=== PATIENT | male | born 1930 | race Caucasian/White ===

== ENCOUNTER 2018-08-09 16:25 | Inpatient (IN) ==
[2018-08-10] MEDS ORDERED: Acetaminophen 325 MG Tablet PO PRN (00:09)
--- NOTE | 2018-08-10 01:18 | P.HPIM ---
History of Present Illness Service: [facility] Primary Care Physician: UNKNOWN Chief Complaint: Chest pain History of Present Illness: 87-year-old male with a history of hypertension, AAA , CAD, hyperlipidemia, hypothyroidism, BPH and CKD stage III was a transfer from [facility] in [place] for evaluation by cardiothoracic surgery. He states for the last 3 days he has been having intermittent chest pain and today it became more prominent and was not relieved by nitro. He states the pain was a sharp stabbing constant 7/10 in the center of his chest with no radiation or associated symptoms. He states he presented to the ER and they took him straight for a cardiac cath in which they told him he was to block to be able to be stented. Patient is the stepfather to Dr. Mcintyre. And he states he consulted with her and it was decided that he wanted to be evaluated by Dr. Jang. Upon evaluation he is laying in bed, denies any chest pain or shortness of breath. While at [facility] he was diagnosed with pneumonia, but he does deny any cough, fevers or chills. Inpatient Certification Inpatient Certification: I certify that the inpatient services were ordered in accordance with Medicare regulations governing the order. This includes certification that hospital inpatient services are reasonable and necessary and in the case of services not specified as inpatient-only under 42 CFR 419.22(n), that they are appropriately provided as inpatient services in accordance to with the 2-midnight benchmark under 43 CFR 412.3(e) Estimated Total Length of Stay (Days): 2 Plans for Post Hospital Care: Home Review of Systems Review of Systems: all other systems reviewed are negative [facility] History History Provided By: Patient Medical History Medical History AAA (abdominal aortic aneurysm) (Acute) BPH (benign prostatic hyperplasia) (Acute) CKD (chronic kidney disease) (Acute) Coronary artery disease (Acute) HLD (hyperlipidemia) (Acute) HTN (hypertension) (Acute) Heart disease (Acute) Hypothyroidism (Acute) Prostate cancer (Acute) Sleep apnea (Acute) Surgical History Surgical History H/O heart artery stent (Acute) History of appendectomy (Acute) History of cholecystectomy (Acute) History of tonsillectomy (Acute) Family History Family History Other Heart disease Social History Social History Substance History: No History of Abuse Second Hand Smoke Exposure: No Smoking Status: Never smoker How Often Do You Have a Drink Containing Alcohol: Never Medications and Allergies Allergies Allergy/AdvReac Type Severity Reaction Status Date / Time ciprofloxacin [From Cipro] Allergy unknown Verified 08/10/18 01:34 diphenhydramine Allergy unknown Verified 08/10/18 01:34 [From Benadryl] Penicillins Allergy unknown Verified 08/10/18 01:34 sulfamethoxazole Allergy unknown Verified 08/10/18 01:34 [From Bactrim] terazosin [From Hytrin] Allergy unknown Verified 08/10/18 01:34 trazodone Allergy unknown Verified 08/10/18 01:34 trimethoprim [From Bactrim] Allergy unknown Verified 08/10/18 01:34 bee stings Allergy unknown Uncoded 08/10/18 01:34 Home Medications Medication Instructions Recorded Confirmed Type azithromycin 500 mg IV Q24H 08/10/18 08/10/18 History ceftriaxone 1 g IV DAILY 08/10/18 08/10/18 History docusate sodium 100 mg PO BID 08/10/18 08/10/18 History famotidine 20 mg PO DAILY 08/10/18 08/10/18 History morphine 2 mg IV Q4HR PRN 08/10/18 08/10/18 History oxycodone-acetaminophen 1 tab PO Q4-6H PRN 08/10/18 08/10/18 History sennosides-docusate sodium [Senna 2 tab PO HS PRN 08/10/18 08/10/18 History with Docusate Sodium] Active Medications: Active Medications Acetaminophen (Tylenol) 650 mg PO Q4H PRN PRN Reason: Temp > 100.4 Ondansetron HCl (Zofran Inj) 4 mg IV.PUSH Q6H PRN PRN Reason: NAUSEA OR VOMITING Sodium Chloride (Ns Flush) 2 ml IV.FLUSH BID SALMA Sodium Chloride (Ns Flush) 2 ml IV.FLUSH PRN PRN PRN Reason: FLUSH AFTER USING IV ACCESS Physical Exam Vital signs: Vital Signs 08/10/18 00:27 Temperature 97.8 F Pulse Rate 77 Respiratory Rate 18 Blood Pressure 136/69 Intake & Output 02/17/19 02/17/19 02/18/19 06:59 18:59 06:59 Weight 69.5 kg Other: Weight On Admission 69.5 kg Narrative: GENERAL: Well-nourished patient in no distress SKIN: Warm and dry. No open lesions or abrasions EYES: No scleral icterus. No injection or drainage. NECK: Supple, trachea midline. No JVD or lymphadenopathy. CARDIOVASCULAR: Regular rate and rhythm without murmurs, gallops, or rubs. RESPIRATORY: Breath sounds equal bilaterally. No accessory muscle use. GASTROINTESTINAL: Abdomen soft, non-tender, nondistended. Bowel sounds x4 MUSCULOSKELETAL: No cyanosis, or edema. No muscle weakness Caprini VTE Risk Assessment Caprini VTE Risk Assessment: Moderate/High Risk (score >= 2) Caprini Risk Assessment Model: Point Value = 1 Point Value = 2 Point Value = 3 Point Value = 5 Age 41-60 Minor surgery BMI > 25 kg/m2 Swollen legs Varicose veins or History of unexplained or recurrent spontaneous Oral contraceptives or hormone replacement Sepsis (< 1 month) Serious lung disease, including pneumonia (< 1 month) Abnormal pulmonary function Acute myocardial infarction Congestive heart failure (< 1 month) History of inflammatory bowel disease Medical patient at bed rest Age 61-74 Arthroscopic surgery Major open surgery (> 45 min) Laparoscopic surgery (> 45 min) Malignancy Confined to bed (> 72 hours) Immobilizing plaster cast Central venous access Age >= 75 History of VTE Family history of VTE Factor V Leiden Prothrombin [id number] Lupus anticoagulant Anticardiolipin antibodies Elevated serum homocysteine Heparin-induced thrombocytopenia Other congenital or acquired thrombophilia Stroke (< 1 month) Elective arthroplasty Hip, pelvis, or leg fracture Acute spinal cord injury (< 1 month) Prophylaxis Regimen: Total Risk Factor Score Risk Level Prophylaxis Regimen 0-1 Low Early ambulation 2 Moderate Order ONE of the following: *Sequential Compression Device (SCD) *Heparin 5000 units SQ BID 3-4 Higher Order ONE of the following medications: *Heparin 5000 units SQ TID *Enoxaparin/Lovenox 40 mg SQ daily (WT < 150 kg, CrCl > 30 mL/min) *Enoxaparin/Lovenox 30 mg SQ daily (WT < 150 kg, CrCl > 10-29 mL/min) *Enoxaparin/Lovenox 30 mg SQ BID (WT < 150 kg, CrCl > 30 mL/min) AND/OR *Sequential Compression Device (SCD) 5 or more Highest Order ONE of the following medications: *Heparin 5000 units SQ TID (Preferred with Epidurals) *Enoxaparin/Lovenox 40 mg SQ daily (WT < 150 kg, CrCl > 30 mL/min) *Enoxaparin/Lovenox 30 mg SQ daily (WT < 150 kg, CrCl > 10-29 mL/min) *Enoxaparin/Lovenox 30 mg SQ BID (WT < 150 kg, CrCl > 30 mL/min) AND *Sequential Compression Device (SCD) Assessment and Plan Plan 87-year-old male with a history of hypertension, AAA, CAD, hyperlipidemia, hypothyroidism, BPH and CKD stage III was a transfer from [facility] in [place] for evaluation by cardiothoracic surgery. Angina, with occluded stents, possible in need of open heart EKG shows normal sinus rhythm with a left bundle branch block -Cardiothoracic surgery consulted; Appreciate assistance -Nitro sublingual for chest pain -Morphine as needed IV -Reordered home aspirin and Brilinta -Cardiac diet for now until evaluated by surgery Pneumonia Chest x-ray reviewed from prior hospital shows interstitial infiltrates in the right upper and right lower as well as left mid and lower lung -Continue azithromycin IV and ceftriaxone IV -Trend CBC Hypertension, chronic -Resume home medications doxazosin and carvedilol, monitor vitals Hypothyroidism, chronic -Resume home medications Hyperlipidemia, chronic -Resume home medications atorvastatin DVT prophylaxis: SCDs
[2018-08-10] MEDS ORDERED: diazePAM 2 MG Tablet PO PRN (01:35)
[2018-08-10] MEDS ORDERED: AZITHROMYCIN 500 MG IV.SIG SCH (09:00)
[2018-08-10] MEDS ORDERED: CEFTRIAXONE 1 GM IV.SIG SCH (09:00)
[2018-08-10] MEDS: Azithromycin Inj 500 MG in Sodium Chlor 0.9% Inj 250 ML IV.SIG SCH (09:14)
[2018-08-10] MEDS: Docusate Sodium 100 MG Capsule PO SCH ×2 (09:15→21:11)
[2018-08-10] MEDS: Furosemide 20 MG Tablet PO SCH (09:17)
[2018-08-10] MEDS: Doxazosin 1 MG Tablet PO SCH (09:17)
[2018-08-10] MEDS: Levothyroxine 50 MCG Tablet PO SCH (09:18)
[2018-08-10] MEDS: Famotidine 20 MG Tablet PO SCH (09:18)
[2018-08-10] MEDS ORDERED: Insulin Regular (For Infusion) 100 UNIT in Sodium Chlor 0.9% Inj 99 ML IV.CONT PRN (12:22)
[2018-08-10] MEDS ORDERED: Dextrose 50% in Water 50 ML Vial IV.PUSH PRN (12:22)
[2018-08-10] MEDS ORDERED: Sodium Chloride 0.9% Irr Bot 1,000 ML, Vancomycin Inj 1,000 MG IRRIGATION SCH ×2 (12:30)
[2018-08-10] MEDS ORDERED: Sodium Chlor 0.9% Inj 77.5 ML, Papaverine Inj 60 MG, Nitroglycerin Inj 100 MCG, dilTIAZ... IRRIGATION SCH ×3 (12:30)
[2018-08-10] MEDS ORDERED: Chlorhexidine 4% Topical 120 APPLIC/120 ML Bottle TOPICAL SCH (12:30)
[2018-08-10] MEDS ORDERED: Vancomycin Inj 1,000 MG in Sodium Chlor 0.9% Inj 250 ML IV.SIG SCH (13:00)
--- NOTE | 2018-08-10 13:40 | MB ---
cc: Damaris Salinas APRN DATE: 08/10/2018 HISTORY OF PRESENT ILLNESS: An 87-year-old male, patient of Dr. Iraj Fung and Damion Humphrey, who apparently was transferred from [facility]; history of coronary artery disease, who has was actually seen by Dr. Jang in the office on 07/06/2018. He has had a history of coronary disease. He has had prior stenting of the RCA. He has been complaining of symptoms of chest pain and shortness of breath. He had recent re-instent stenosis of the RCA stent for which he underwent PCI and balloon angioplasty. He presented to [facility] with chest pain. He had a catheterization that was done on Friday; however, I do not have that catheterization report, which is pending and also the films. He did have a heart catheterization. His last report was from 05/04/2018 which showed the left main was a medium size without significant disease. LAD had no obstructive disease; the circumflex had no obstructive disease. The RCA had a 90+ percent in-stent restenosis where PCI was completed. He has also had an echocardiogram from 05/07/2018 showing an ejection fraction of 50%-55%, trace mitral and tricuspid insufficiency. PAST MEDICAL HISTORY: Other past medical history includes hypertension, coronary artery disease. PAST SURGICAL HISTORY: Includes abdominal aortic aneurysm repair, appendectomy, cardiac catheterization, cholecystectomy, tonsillectomy. ALLERGIES: INCLUDE BACTRIM, BENADRYL, CIPROFLOXACIN, HYTRIN, PENICILLIN. HOME MEDICATIONS: Include: 1. Percocet p.r.n. 2. Zithromax. 3. Ceftriaxone. 4. Docusate. 5. Felodipine. 6. Morphine. 7. The patient was also on Brilinta at home, his last dose was yesterday. He has been on Brilinta since April. 8. He was also recently started on Rocephin and Zithromax for upper respiratory infection. FAMILY HISTORY: Heart disease. SOCIAL HISTORY: Nonsmoking. He did smoke for 20 years, quit 30 years ago. Drinks 2 beers in the evening; quit driving. He is on his third marriage. Lives with his , has 5 children of his own. REVIEW OF SYSTEMS: GENERAL: No night sweats, fever, heat and cold intolerance. SKIN: No psoriasis, itching or hives. HEENT: No blurred vision, hearing loss. RESPIRATORY: Positive for recent chest pain, some shortness of breath. GASTROINTESTINAL: No diarrhea or vomiting. GENITOURINARY: No burning, frequency, urgency. CENTRAL NERVOUS SYSTEM: No history of TIA, CVA or seizure disorder. ENDOCRINOLOGY: No history of diabetes. PHYSICAL EXAMINATION: VITAL SIGNS: Blood pressure 116/60, heart rate of 70, O2 saturation 99 on 2 liters, afebrile. GENERAL: Patient is awake, alert, in no acute distress. HEENT: Head is normocephalic, atraumatic. Pupils equal and reactive. Oral mucosa pink, moist. NECK: Supple. No JVD. CARDIOVASCULAR: Heart sounds S1, S2. Regular rate and rhythm. No audible rubs, murmurs, or gallops. LUNGS: Clear to auscultation. No wheezes, rales or rhonchi. ABDOMEN: Soft, nontender. No masses or organomegaly. EXTREMITIES: No cyanosis, clubbing, or edema. LABORATORY DATA: Lab work was pending. RADIOLOGICAL EXAMS: Are also pending. IMPRESSION AND PLAN: This is a gentleman that has had recent rein in-stent stenosis to the right coronary artery. We are waiting on his catheterization report and films from [place] that will be evaluated by Dr. Elle Vasquez and evaluated for possible surgery. He has seen our partner, Dr. Cheyenne Jang, who will further evaluate for surgery. He needs to be off the Brilinta for greater than 5 days and timing of surgery as per Dr. Elle Vasquez and/or Dr. Jang. JAY Wheeler MD JRT/bandar , 12:21 PM , 12:29 PM
--- NOTE | 2018-08-10 13:53 | XR ---
EXAM DATE: 08/10/2018 1:27 PM EST AGE/SEX: 87 years / Male INDICATIONS: Evaluate for pulmonary disease. CLINICAL DATA: This is the patient's initial encounter. Patient reports that signs and symptoms have been present for 1 day and indicates a pain score of 0/10. MEDICAL/SURGICAL HISTORY: None. None. COMPARISON: [facility], XR CHEST PA AND LAT, 05/27/2018. . FINDINGS: Mild, chronic appearing interstitial opacities and volume loss seen on the right, similar to the prio r study. No acute pneumonic infiltrate demonstrated. No pleural effusion or pneumothorax. Heart size within normal limits. Tortuous thoracic aorta again noted. CONCLUSION: No acute pneumonia demonstrated. Mild, chronic appearing interstitial opacities and volume loss on th e right. Electronically signed by: Elmer Gallego MD Board Certified Radiologist 08/10/2018 1:52 PM EST
[2018-08-10 14:08] LABS: Anion Gap 7 meq/L (5-15); Blood Urea Nitrogen 20 mg/dL (7-18); Calcium 8.6 mg/dL (8.5-10.1); Carbon Dioxide 26.7 meq/L (21.0-32.0); Chloride 107 meq/L (98-107); Glomerular Filtration Rate 47 mL/min (>89); Glucose,Random 104 mg/dL (74-106); Potassium 3.8 meq/L (3.5-5.1); Sodium 141 meq/L (136-145)
[2018-08-10 14:14] LABS: Alanine Aminotransferase 17 U/L (12-78); Alkaline Phosphatase 168 U/L (45-117); Aspartate Aminotransferase 26 U/L (15-37); Total Protein 6.2 g/dL (6.4-8.2)
--- NOTE | 2018-08-10 14:19 | US ---
EXAM DATE: 08/10/2018 2:12 PM EST AGE/SEX: 87 years / Male INDICATIONS: Pre Op cardiac surgery. CLINICAL DATA: This is the patient's initial encounter. Patient reports that signs and symptoms have been present for 1 day and indicates a pain score of 0/10. MEDICAL/SURGICAL HISTORY: Aneurysm, abdominal. Carcinoma, prostatic. Hypothyroidism. BPH. CK D. CAD. Hyperlipidemia. HTN. Sleep apnea. Coronary artery stent. Appendectomy. Cholecystectomy. T onsillectomy. COMPARISON: No prior exams available for comparison. VELOCITY PARAMETERS: ICA/CCA Ratio: Right 1.2 , Left 1.6 ICA: Right 208 cm/sec, Left 188 cm/sec CCA: Right 169 cm/sec, Left 114 cm/sec ECA: Right 136 cm/sec, Left 146 cm/sec Vertebral: Right 52 cm/sec antegrade, Left 80 cm/sec antegrade FINDINGS: Right Carotid: Moderate arteriosclerotic plaque is visualized with 50% or less narrowing at the bulb and proximal internal carotid artery.The waveforms are within normal limits. Left Carotid: Moderate arteriosclerotic plaque is visualized at the bulb and proximal internal carot id artery.. The waveforms are within normal limits. Other: None. CONCLUSION: 1. Right Internal Carotid Artery: Moderate severity atherosclerotic plaque at the bifurcation withou t hemodynamically significant narrowing. 2. Left Internal Carotid Artery: Moderate severity atherosclerotic plaque at the bifurcation without hemodynamically significant narrowing. Electronically signed by: Elmer Gallego MD Board Certified Radiologist 08/10/2018 2:18 PM EST
--- NOTE | 2018-08-10 14:20 | US ---
EXAM DATE: 08/10/2018 2:13 PM EST AGE/SEX: 87 years / Male INDICATIONS: Pre Op cardiac surgery. CLINICAL DATA: This is the patient's initial encounter. Patient reports that signs and symptoms have been present for 1 day and indicates a pain score of 0/10. MEDICAL/SURGICAL HISTORY: Aneurysm, abdominal. Carcinoma, pharyngeal. Hypothyroidism. BPH. C KD. CAD. Hyperlipidemia. HTN. Sleep apnea. Coronary artery stent. Appendectomy. Cholecystectomy. Tonsillectomy. COMPARISON: No prior exams available for comparison. TECHNIQUE: Venous ultrasound of both lower extremities was performed from the inguinal ligament to t he proximal calf. Real-time, color Doppler and spectral tracing, compression and augmentation techni ques were used. FINDINGS: Right Leg: Normal compression of the deep venous system from the inguinal region to the proximal destin f. No echogenic clot is seen. Normal response of the venous system to augmentation and respiration. Left Leg: Normal compression of the deep venous system from the inguinal region to the proximal calf . No echogenic clot is seen. Normal response of the venous system to augmentation and respiration. Other: None. CONCLUSION: No venous thrombosis of either lower extremity. Electronically signed by: Elmer Gallego MD Board Certified Radiologist 08/10/2018 2:18 PM EST
--- NOTE | 2018-08-10 14:25 | US ---
EXAM DATE: 08/10/2018 2:17 PM EST AGE/SEX: 87 years / Male INDICATIONS: Pre Op cardiac surgery. CLINICAL DATA: This is the patient's initial encounter. Patient reports that signs and symptoms have been present for 1 day and indicates a pain score of 0/10. MEDICAL/SURGICAL HISTORY: Anemia. Carcinoma, prostatic. Hypothyroidism. BPH. CKD. CAD. Hyper lipidemia. HTN. Sleep apnea. Coronary artery stent. Appendectomy. Cholecystectomy. Tonsillectomy. COMPARISON: [facility] [place], [place] VENOUS DOPPLER LEG BI, 08/10/2018. . MEASUREMENTS: RIGHT THIGH: Proximal:__5 mm Mid:__ 1 mm Distal:__3 mm LEFT THIGH: Proximal:__4 mm Mid:__3 mm Distal:__3 mm RIGHT CALF: Proximal:__2 mm Mid:__1 mm Distal:__1 mm LEFT CALF: Proximal:__3 mm Mid:__2 mm Distal:__2 mm FINDINGS: The venous system of the lower extremities are patent by color Doppler imaging. Measurements of the leg veins (in mm) are listed above. CONCLUSION: 1. Venous mapping as above Electronically signed by: Iraj Paulino MD Board Certified Radiologist 08/10/2018 2:24 PM EST
[2018-08-10 17:38] LABS: Hemoglobin A1c 5.8 % (4.3-6.0)
[2018-08-10] MEDS ORDERED: Heparin 10,000 UNITS/10 ML Vial (for IV use) IV.PUSH STA (18:59)
[2018-08-10] MEDS ORDERED: Metoprolol Inj 5 MG/5 ML Vial IV.PUSH ONE (19:00)
[2018-08-10 19:33] LABS: Hematocrit 34.4 % (39.0-51.0); Hemoglobin 11.7 gm/dL (13.0-17.0); Mean Corpuscular Hemoglobin 31.2 pg (27.0-34.0); Mean Corpuscular Volume 91.8 fL (80.0-100.0); Mean Platelet Volume 7.8 fL (7.0-11.0); Platelet Count 145 th/mm3 (150-450); Red Blood Count 3.74 mil/mm3 (4.50-5.90); Red Cell Distribution Width 14.3 % (11.6-17.2); White Blood Count 7.2 th/mm3 (4.0-11.0)
[2018-08-10 19:45] LABS: INR 1.1 Ratio; Prothrombin Time 10.7 sec (9.8-11.6)
[2018-08-10] MEDS: Heparin Drip 25,000 UNIT/250 ML BAG IV.CONT PRN (19:53)
[2018-08-10] MEDS: Morphine Sulfate Inj 2 MG/ML Vial IV.PUSH PRN (19:54)
--- NOTE | 2018-08-10 20:37 | P.PNIM ---
Patient seen/examined in CVICU around noon. Patient complained of chest discomfort. Sublingual NTG given and we will start patient on NTG 2% oint. CV surgery will evaluate patient pending review of cardiac cath from an outside hospital. Discussed with CV Surgery as well as patient's RN.
[2018-08-11 02:36] LABS: Baso % (Auto) 0.4 % (0.0-2.0); Eos # (Auto) 0.3 th/mm3 (0.0-0.4); Eos % (Auto) 4.2 % (0.0-4.0); Hemoglobin 11.4 gm/dL (13.0-17.0); Lymph # (Auto) 1.1 th/mm3 (1.0-4.8); Lymph % (Auto) 13.1 % (9.0-44.0); Mean Corpuscular HGB Conc 35.6 % (32.0-36.0); Mean Corpuscular Hemoglobin 32.1 pg (27.0-34.0); Mean Corpuscular Volume 90.2 fL (80.0-100.0); Mean Platelet Volume 7.8 fL (7.0-11.0); Mono # (Auto) 0.7 th/mm3 (0.0-0.9); Mono % (Auto) 8.8 % (0.0-8.0); Neut # (Auto) 6.1 th/mm3 (1.8-7.7); Neut % (Auto) 73.5 % (16.0-70.0); Platelet Count 141 th/mm3 (150-450); Red Blood Count 3.54 mil/mm3 (4.50-5.90); White Blood Count 8.3 th/mm3 (4.0-11.0)
[2018-08-11] MEDS: Levothyroxine 50 MCG Tablet PO SCH (05:05)
[2018-08-11] MEDS: Furosemide 20 MG Tablet PO SCH (08:42)
[2018-08-11] MEDS: Doxazosin 1 MG Tablet PO SCH (08:42)
[2018-08-11] MEDS: Docusate Sodium 100 MG Capsule PO SCH ×2 (08:42→20:53)
[2018-08-11] MEDS: Famotidine 20 MG Tablet PO SCH (08:42)
[2018-08-11] MEDS: Azithromycin Inj 500 MG in Sodium Chlor 0.9% Inj 250 ML IV.SIG SCH (08:50)
--- NOTE | 2018-08-11 09:19 | P.PNCV ---
- Note Subjective/Hospital Course: An 87-year-old male, patient of Dr. Iraj Fung and Damion Humphrey, who apparently was transferred from [facility]; history of coronary artery disease, who has was actually seen by Dr. Jang in the office on 2018. He has had a history of coronary disease. He has had prior stenting of the RCA. He has been complaining of symptoms of chest pain and shortness of breath. He had recent re-instent stenosis of the RCA stent for which he underwent PCI and balloon angioplasty. He presented to [facility] with chest pain. He had a catheterization that was done on Friday; however, I do not have that catheterization report, which is pending and also the films. He did have a heart catheterization. His last report was from 05/04/2018 which showed the left main was a medium size without significant disease. LAD had no obstructive disease; the circumflex had no obstructive disease. The RCA had a 90+ percent in-stent restenosis where PCI was completed. He has also had an echocardiogram from 05/07/2018 showing an ejection fraction of 50%-55%, trace mitral and tricuspid insufficiency. Objective: Vital Signs - 24 hr 08/10/18 11:16 08/10/18 12:00 08/10/18 13:00 Temperature 97.6 F Pulse Rate 83 83 80 Respiratory Rate 20 Blood Pressure 116/62 Pulse Oximetry 97 08/10/18 13:56 08/10/18 15:00 08/10/18 16:00 Temperature 97.9 F Pulse Rate 82 96 H 93 H Respiratory Rate 16 Blood Pressure 108/64 Pulse Oximetry 96 08/10/18 17:00 08/10/18 18:00 08/10/18 19:00 Temperature Pulse Rate 90 116 H 91 H Respiratory Rate Blood Pressure Pulse Oximetry 98 08/10/18 20:00 08/10/18 21:00 08/10/18 22:00 Temperature 98.7 F Pulse Rate 85 87 78 Respiratory Rate 18 Blood Pressure 127/62 128/60 Pulse Oximetry 98 08/10/18 23:00 08/11/18 00:00 08/11/18 01:00 Temperature 97.3 F L Pulse Rate 56 L 72 68 Respiratory Rate 18 Blood Pressure 96/51 L Pulse Oximetry 97 08/11/18 02:00 08/11/18 03:00 08/11/18 03:56 Temperature 98.3 F Pulse Rate 73 66 77 Respiratory Rate 18 Blood Pressure 104/54 L Pulse Oximetry 96 08/11/18 04:00 08/11/18 05:00 08/11/18 05:10 Temperature Pulse Rate 73 69 Respiratory Rate Blood Pressure Pulse Oximetry 98 08/11/18 06:00 08/11/18 07:00 08/11/18 07:34 Temperature 98.2 F Pulse Rate 65 77 Respiratory Rate 20 Blood Pressure 99/55 L Pulse Oximetry 97 97 Labs: Laboratory Results - last 12 hr 08/11/18 08/11/18 02:28 02:28 WBC 8.3 RBC 3.54 L Hgb 11.4 L Hct 32.0 L MCV 90.2 MCH 32.1 MCHC 35.6 RDW 14.0 Plt Count 141 L MPV 7.8 Neut % (Auto) 73.5 H Lymph % (Auto) 13.1 Carson % (Auto) 8.8 H Eos % (Auto) 4.2 H Baso % (Auto) 0.4 Neut # (Auto) 6.1 Lymph # (Auto) 1.1 Carson # (Auto) 0.7 Eos # (Auto) 0.3 Baso # (Auto) 0.0 WBC Differential . Differential Comment Auto diff final APTT 76.2 H D Result Diagrams: 08/11/18 02:28 08/10/18 13:22
--- NOTE | 2018-08-11 10:00 | P.PNIM ---
Subjective Interval history: Follow-up for acute coronary syndrome. Patient had chest pain last night. Currently he is using nitroglycerin patch and also on heparin drip. Resting in bed. In bed, he denies any chest pain, shortness of breath, fever or chills. However, when he exerts themselves he experiences chest discomfort. Physical Exam Vital signs: Vital Signs 08/10/18 11:16 08/10/18 12:00 08/10/18 13:00 Temperature 97.6 F Pulse Rate 83 83 80 Respiratory Rate 20 Blood Pressure 116/62 Pulse Oximetry 97 08/10/18 13:56 08/10/18 15:00 08/10/18 16:00 Temperature 97.9 F Pulse Rate 82 96 H 93 H Respiratory Rate 16 Blood Pressure 108/64 Pulse Oximetry 96 08/10/18 17:00 08/10/18 18:00 08/10/18 19:00 Temperature Pulse Rate 90 116 H 91 H Respiratory Rate Blood Pressure Pulse Oximetry 98 08/10/18 20:00 08/10/18 21:00 08/10/18 22:00 Temperature 98.7 F Pulse Rate 85 87 78 Respiratory Rate 18 Blood Pressure 127/62 128/60 Pulse Oximetry 98 08/10/18 23:00 08/11/18 00:00 08/11/18 01:00 Temperature 97.3 F L Pulse Rate 56 L 72 68 Respiratory Rate 18 Blood Pressure 96/51 L Pulse Oximetry 97 08/11/18 02:00 08/11/18 03:00 08/11/18 03:56 Temperature 98.3 F Pulse Rate 73 66 77 Respiratory Rate 18 Blood Pressure 104/54 L Pulse Oximetry 96 08/11/18 04:00 08/11/18 05:00 08/11/18 05:10 Temperature Pulse Rate 73 69 Respiratory Rate Blood Pressure Pulse Oximetry 98 08/11/18 06:00 08/11/18 07:00 08/11/18 07:34 Temperature 98.2 F Pulse Rate 65 67 77 Respiratory Rate 20 Blood Pressure 99/55 L Pulse Oximetry 97 97 08/11/18 08:00 08/11/18 09:00 Temperature Pulse Rate 60 78 Respiratory Rate Blood Pressure Pulse Oximetry Intake & Output 08/10/18 08/11/18 08/11/18 18:59 06:59 18:59 Intake Total 850 / 850 240 / 240 100 / 100 Output Total 675 / 675 1580 / 1580 Balance 175 / 175 -1340 / -1340 100 / 100 Weight 69.5 kg 68.5 kg Intake: IV 350 / 350 100 / 100 Azithromycin Inj 500 MG In NS 250 / 250 Inj 250 ML @ 250 mls/hr IV.SIG Q24H SALMA Rx#:[id number] Rocephin Inj 1,000 MG In NS Inj 100 / 100 100 / 100 100 ML @ 200 mls/hr IV.SIG Q24H SALMA Rx#:[id number] Oral 500 / 500 240 / 240 Output: Urine 675 / 675 1580 / 1580 Other: Date of Last Bowel Movement 08/10/18 Narrative: GENERAL: Well-nourished, well-developed patient. SKIN: Warm and dry. HEAD: Normocephalic. EYES: No scleral icterus. No injection or drainage. NECK: Supple, trachea midline. No JVD or lymphadenopathy. CARDIOVASCULAR: Regular rate and rhythm without murmurs, gallops, or rubs. RESPIRATORY: Breath sounds equal bilaterally. No accessory muscle use. GASTROINTESTINAL: Abdomen soft, non-tender, nondistended. MUSCULOSKELETAL: No cyanosis, or edema. BACK: Nontender without obvious deformity. No CVA tenderness. Results Labs CBC & Chem 7: 08/11/18 02:28 08/10/18 13:22 Imaging Imaging: Impressions Carotid Doppler Study 08/10/18 12:22 CONCLUSION: 1. Right Internal Carotid Artery: Moderate severity atherosclerotic plaque at the bifurcation without hemodynamically significant narrowing. 2. Left Internal Carotid Artery: Moderate severity atherosclerotic plaque at the bifurcation without hemodynamically significant narrowing. Lower Extremity Ultrasound 08/10/18 12:22 CONCLUSION: 1. Venous mapping as above Venous Doppler Study 08/10/18 12:22 CONCLUSION: No venous thrombosis of either lower extremity. Chest X-Ray 08/10/18 12:53 CONCLUSION: No acute pneumonia demonstrated. Mild, chronic appearing interstitial opacities and volume loss on the right. Assessment and Plan Plan Mr. Serna is a pleasant 87-year-old male with a history of hypertension, AAA, CAD, hyperlipidemia, hypothyroidism, BPH and CKD stage III was a transfer from [facility] in [place] for evaluation by cardiothoracic surgery. Due to 3- day duration of chest pain, patient went to [facility] where he underwent cardiac catheterization. However he was apparently told that there was no blockage to be stented. Subsequently he was transferred to [facility] to be evaluated by cardiothoracic surgery. Likely multivessel coronary artery disease Hypertension Hyperlipidemia We do not have the latest cardiac catheterization reports. Due to ongoing chest pain, patient is currently on heparin drip. Cardiothoracic surgery following. Continue aspirin 81 mg, Lipitor 40 mg, carvedilol 3.125 mg twice daily Brilinta is on hold. Last dose was taken on 08/09/2018. Morphine for pain. Probable pneumonia Continue azithromycin and ceftriaxone. Patient is currently on room air. We can likely transition to oral Levaquin. Full code. Heparin drip.
[2018-08-11] MEDS: Morphine Sulfate Inj 2 MG/ML Vial IV.PUSH PRN ×2 (10:38→15:56)
--- NOTE | 2018-08-11 14:16 | P.PNCV ---
- Note Subjective/Hospital Course: An 87-year-old male, patient of Dr. Iraj Fung and Damion Humphrey, who apparently was transferred from [facility]; history of coronary artery disease, who has was actually seen by Dr. Jang in the office on 2018. He has had a history of coronary disease. He has had prior stenting of the RCA. He has been complaining of symptoms of chest pain and shortness of breath. He had recent re-instent stenosis of the RCA stent for which he underwent PCI and balloon angioplasty. He presented to [facility] with chest pain. He had a catheterization that was done on Friday; however, I do not have that catheterization report, which is pending and also the films. He did have a heart catheterization. His last report was from 05/04/2018 which showed the left main was a medium size without significant disease. LAD had no obstructive disease; the circumflex had no obstructive disease. The RCA had a 90+ percent in-stent restenosis where PCI was completed. He has also had an echocardiogram from 05/07/2018 showing an ejection fraction of 50%-55%, trace mitral and tricuspid insufficiency. 08/11 pt had some substernal chest pain last night, placed on IV heparin gtt and NTG paste now pain free, will wait for PRU in am to decide timing for surgery Objective: Vital Signs - 24 hr 08/10/18 15:00 08/10/18 16:00 08/10/18 17:00 Temperature 97.9 F Pulse Rate 96 H 93 H 90 Respiratory Rate 16 Blood Pressure 108/64 Pulse Oximetry 96 08/10/18 18:00 08/10/18 19:00 08/10/18 20:00 Temperature 98.7 F Pulse Rate 116 H 91 H 85 Respiratory Rate 18 Blood Pressure 127/62 Pulse Oximetry 98 98 08/10/18 21:00 08/10/18 22:00 08/10/18 23:00 Temperature Pulse Rate 87 78 56 L Respiratory Rate Blood Pressure 128/60 Pulse Oximetry 08/11/18 00:00 08/11/18 01:00 08/11/18 02:00 Temperature 97.3 F L Pulse Rate 72 68 73 Respiratory Rate 18 Blood Pressure 96/51 L Pulse Oximetry 97 08/11/18 03:00 08/11/18 03:56 08/11/18 04:00 Temperature 98.3 F Pulse Rate 66 77 73 Respiratory Rate 18 Blood Pressure 104/54 L Pulse Oximetry 96 08/11/18 05:00 08/11/18 05:10 08/11/18 06:00 Temperature Pulse Rate 69 65 Respiratory Rate Blood Pressure Pulse Oximetry 98 08/11/18 07:00 08/11/18 07:34 08/11/18 08:00 Temperature 98.2 F Pulse Rate 67 77 60 Respiratory Rate 20 Blood Pressure 99/55 L Pulse Oximetry 97 97 08/11/18 09:00 08/11/18 10:00 08/11/18 10:56 Temperature Pulse Rate 78 83 Respiratory Rate Blood Pressure Pulse Oximetry 97 08/11/18 11:00 08/11/18 11:43 08/11/18 11:56 Temperature 97.5 F L Pulse Rate 82 80 84 Respiratory Rate 16 Blood Pressure 111/55 L Pulse Oximetry 96 08/11/18 13:00 Temperature Pulse Rate 62 Respiratory Rate Blood Pressure Pulse Oximetry GENERAL: SKIN: Warm and dry. HEAD: Normocephalic. EYES: No scleral icterus. No injection or drainage. NECK: Supple, trachea midline. No JVD or lymphadenopathy. CARDIOVASCULAR: Regular rate and rhythm without murmurs, gallops, or rubs. RESPIRATORY: Breath sounds equal bilaterally. No accessory muscle use. GASTROINTESTINAL: Abdomen soft, non-tender, nondistended. MUSCULOSKELETAL: No cyanosis, or edema. BACK: Nontender without obvious deformity. No CVA tenderness. Labs: Laboratory Results - last 12 hr 08/11/18 08/11/18 08/11/18 02:28 02:28 10:00 WBC 8.3 RBC 3.54 L Hgb 11.4 L Hct 32.0 L MCV 90.2 MCH 32.1 MCHC 35.6 RDW 14.0 Plt Count 141 L MPV 7.8 Neut % (Auto) 73.5 H Lymph % (Auto) 13.1 [place] % (Auto) 8.8 H Eos % (Auto) 4.2 H Baso % (Auto) 0.4 Neut # (Auto) 6.1 Lymph # (Auto) 1.1 [place] # (Auto) 0.7 Eos # (Auto) 0.3 Baso # (Auto) 0.0 WBC Differential . Differential Comment Auto diff final APTT 76.2 H D 46.9 H D Result Diagrams: 08/11/18 02:28 08/10/18 13:22 Telemetry: NSR - Plan (1) CAD (coronary artery disease), [place] coronary artery Plan: ASA, statin off Brilinta await PRU to decide timing of surgery
--- NOTE | 2018-08-11 14:28 | ECG ---
Date Performed: 08/10/2018 Time Performed: 18:13:00 PTAGE: 87 years EKG: Sinus tachycardia with borderline 1st degree A-V block. Left bundle branch block Low QRS vo ltages in precordial leads Abnormal ECG NO PREVIOUS TRACING DOCTOR: Shabbir Johnson Interpretating Date/Time 08/11/2018 14:22:20
--- NOTE | 2018-08-11 16:11 | ECHRPT ---
Indication: CHEST PAIN CONCLUSIONS Normal left ventricular size. Wall thickness is normal. The left ventricular systolic function is low normal with an estimated ejection fraction in the rang e of 50- 55%. Trace mitral valve regurgitation. Trace aortic valve regurgitation. There is trace tricuspid valve regurgitation. The estimated pulmonary arterial pressure is 38mmHg. BP: / HR: Rhythm: Sinus MEASUREMENTS (Male / Female) Normal Values Technical Quality:Fair 2D ECHO LV Diastolic Diameter PLAX 4.7 cm 4.2 - 5.9 / 3.9 - 5.3 cm LV Systolic Diameter PLAX 3.7 cm IVS Diastolic Thickness 0.9 cm 0.6 - 1.0 / 0.6 - 0.9 cm LVPW Diastolic Thickness 0.9 cm 0.6 - 1.0 / 0.6 - 0.9 cm LV Relative Wall Thickness 0.4 LA Systolic Diameter LX 3.6 cm 3.0 - 4.0 / 2.7 - 3.8 cm DOPPLER AV Peak Velocity 145.0 cm/s AV Peak Gradient 8.4 mmHg LVOT Peak Velocity 92.8 cm/s LVOT Peak Gradient 3.4 mmHg Mitral E Point Velocity 71.1 cm/s Mitral A Point Velocity 108.0 cm/s Mitral E to A Ratio 0.7 LV E' Lateral Velocity 10.7 cm/s Mitral E to LV E' Lateral Ratio 6.6 LV E' Septal Velocity 5.2 cm/s Mitral E to LV E' Septal Ratio 13.8 TR Peak Velocity 265.0 cm/s TR Peak Gradient 28.1 mmHg Right Atrial Pressure 10.0 mmHg Pulmonary Artery Systolic Pressu 38.1 mmHg Right Ventricular Systolic Press 38.1 mmHg PV Peak Velocity 115.0 cm/s PV Peak Gradient 5.3 mmHg FINDINGS LEFT VENTRICLE Normal left ventricular size. Wall thickness is normal. The left ventricular systolic function is low normal with an estimated ejection fraction in the rang e of 50- 55%. RIGHT VENTRICLE Normal right ventricular size and systolic function. LEFT ATRIUM The left atrial size is normal. RIGHT ATRIUM The right atrial size is normal. ATRIAL SEPTUM Normal atrial septal thickness without atrial level shunting by limited color doppler interrogation. AORTA The aortic root and proximal ascending aorta are normal in size on limited imaging. MITRAL VALVE Structurally normal mitral valve. Trace mitral valve regurgitation. AORTIC VALVE Trace aortic valve regurgitation. TRICUSPID VALVE There is trace tricuspid valve regurgitation. The estimated pulmonary arterial pressure is 38mmHg. PULMONARY VALVE The pulmonary valve is not well visualized. VESSELS The inferior vena cava is normal in size. PERICARDIUM No pericardial effusion. Carlos Hernandez (Electronically Signed) Final Date:11 August 2018 16:10
[2018-08-11] MEDS: Nitroglycerin Drip Premix 50 MG/250 ML BOTTLE IV.CONT PRN (16:26)
[2018-08-11 19:21] LABS: Hematocrit 31.5 % (39.0-51.0); Hemoglobin 10.7 gm/dL (13.0-17.0); Mean Corpuscular Hemoglobin 31.2 pg (27.0-34.0); Mean Corpuscular Volume 91.7 fL (80.0-100.0); Mean Platelet Volume 7.5 fL (7.0-11.0); Platelet Count 137 th/mm3 (150-450); Red Blood Count 3.44 mil/mm3 (4.50-5.90); Red Cell Distribution Width 14.2 % (11.6-17.2); White Blood Count 7.7 th/mm3 (4.0-11.0)
[2018-08-12] MEDS: Heparin Drip 25,000 UNIT/250 ML BAG IV.CONT PRN (03:51)
[2018-08-12] MEDS: Levothyroxine 50 MCG Tablet PO SCH (05:17)
[2018-08-12 05:26] LABS: Hematocrit 30.9 % (39.0-51.0); Hemoglobin 10.8 gm/dL (13.0-17.0); Mean Corpuscular HGB Conc 34.9 % (32.0-36.0); Mean Corpuscular Hemoglobin 31.9 pg (27.0-34.0); Mean Corpuscular Volume 91.4 fL (80.0-100.0); Platelet Count 139 th/mm3 (150-450); Red Blood Count 3.39 mil/mm3 (4.50-5.90); Red Cell Distribution Width 14.4 % (11.6-17.2); White Blood Count 6.8 th/mm3 (4.0-11.0)
[2018-08-12] MEDS: Furosemide 20 MG Tablet PO SCH (08:45)
[2018-08-12] MEDS: Doxazosin 1 MG Tablet PO SCH (08:45)
[2018-08-12] MEDS: Famotidine 20 MG Tablet PO SCH (08:45)
[2018-08-12] MEDS: Docusate Sodium 100 MG Capsule PO SCH ×2 (08:46→21:36)
[2018-08-12] MEDS: Azithromycin Inj 500 MG in Sodium Chlor 0.9% Inj 250 ML IV.SIG SCH (09:42)
[2018-08-12] MEDS: Morphine Sulfate Inj 2 MG/ML Vial IV.PUSH PRN ×2 (10:43→21:35)
--- NOTE | 2018-08-12 11:04 | P.PNCV ---
- Note Subjective/Hospital Course: An 87-year-old male, patient of Dr. Iraj Fung and Damion Humphrey, who apparently was transferred from [facility]; history of coronary artery disease, who has was actually seen by Dr. Jang in the office on 2018. He has had a history of coronary disease. He has had prior stenting of the RCA. He has been complaining of symptoms of chest pain and shortness of breath. He had recent re-instent stenosis of the RCA stent for which he underwent PCI and balloon angioplasty. He presented to [facility] with chest pain. He had a catheterization that was done on Friday; however, I do not have that catheterization report, which is pending and also the films. He did have a heart catheterization. His last report was from 05/04/2018 which showed the left main was a medium size without significant disease. LAD had no obstructive disease; the circumflex had no obstructive disease. The RCA had a 90+ percent in-stent restenosis where PCI was completed. He has also had an echocardiogram from 05/07/2018 showing an ejection fraction of 50%-55%, trace mitral and tricuspid insufficiency. 08/11 pt had some substernal chest pain last night, placed on IV heparin gtt and NTG paste now pain free, will wait for PRU in am to decide timing for surgery 08/12 PRU 138 had episode of brief hemoptysis last pm, now resolved pain controlled last night , now on NTG gtt requiring some titration, high risk for intraop bleed with recent Brilinta last dose friday , will tentatively schedule for surgery on friday Objective: Vital Signs - 24 hr 08/11/18 10:56 08/11/18 11:00 08/11/18 11:43 Temperature 97.5 F L Pulse Rate 82 80 Respiratory Rate 16 Blood Pressure 111/55 L Pulse Oximetry 97 96 08/11/18 11:56 08/11/18 13:00 08/11/18 14:00 Temperature Pulse Rate 84 62 83 Respiratory Rate Blood Pressure Pulse Oximetry 08/11/18 15:00 08/11/18 15:09 08/11/18 16:00 Temperature 97.9 F Pulse Rate 77 76 81 Respiratory Rate 16 Blood Pressure 128/60 Pulse Oximetry 93 L 08/11/18 17:00 08/11/18 18:00 08/11/18 19:00 Temperature Pulse Rate 83 82 88 Respiratory Rate Blood Pressure Pulse Oximetry 08/11/18 20:00 08/11/18 20:54 08/11/18 21:00 Temperature 98.3 F Pulse Rate 76 68 Respiratory Rate 16 Blood Pressure 103/59 L Pulse Oximetry 99 97 08/11/18 22:00 08/11/18 23:00 08/12/18 00:00 Temperature 98.7 F Pulse Rate 70 68 73 Respiratory Rate 16 Blood Pressure 98/52 L Pulse Oximetry 95 08/12/18 01:00 08/12/18 02:00 08/12/18 03:00 Temperature Pulse Rate 66 66 61 Respiratory Rate Blood Pressure Pulse Oximetry 08/12/18 04:00 08/12/18 05:00 08/12/18 06:00 Temperature 97.4 F L Pulse Rate 72 68 56 L Respiratory Rate 16 Blood Pressure 104/51 L Pulse Oximetry 96 08/12/18 07:00 08/12/18 08:00 Temperature 96.8 F L Pulse Rate 61 85 Respiratory Rate 17 Blood Pressure 131/60 Pulse Oximetry 98 98 GENERAL: SKIN: Warm and dry. HEAD: Normocephalic. EYES: No scleral icterus. No injection or drainage. NECK: Supple, trachea midline. No JVD or lymphadenopathy. CARDIOVASCULAR: Regular rate and rhythm without murmurs, gallops, or rubs. RESPIRATORY: Breath sounds equal bilaterally. No accessory muscle use. GASTROINTESTINAL: Abdomen soft, non-tender, nondistended. MUSCULOSKELETAL: No cyanosis, or edema. BACK: Nontender without obvious deformity. No CVA tenderness. Labs: Laboratory Results - last 12 hr 08/12/18 08/12/18 08/12/18 00:03 04:40 04:40 WBC 6.8 RBC 3.39 L Hgb 10.8 L Hct 30.9 L MCV 91.4 MCH 31.9 MCHC 34.9 RDW 14.4 Plt Count 139 L MPV 8.0 APTT 50.3 H D Plt Funct P2Y12 Units 138 L 08/12/18 04:40 WBC RBC Hgb Hct MCV MCH MCHC RDW Plt Count MPV APTT 50.5 H Plt Funct P2Y12 Units Result Diagrams: 08/12/18 04:40 08/10/18 13:22 - Plan (1) CAD (coronary artery disease), [place] coronary artery Plan: ASA, statin PRU 138/ repeat in am for surgery friday
--- NOTE | 2018-08-12 18:11 | P.PNIM ---
Subjective Interval history: Follow-up for acute coronary syndrome. Patient is seen around lunch time. Having lunch at bedside. Apparently had some hemoptysis yesterday but no further episodes. No chest pain, SOB, fever, chills. Probable CABG on Friday08/14/2018. Physical Exam Vital signs: Vital Signs 08/11/18 14:00 08/11/18 15:00 08/11/18 15:09 Temperature 97.9 F Pulse Rate 83 77 76 Respiratory Rate 16 Blood Pressure 128/60 Pulse Oximetry 93 L 08/11/18 16:00 08/11/18 17:00 08/11/18 18:00 Temperature Pulse Rate 81 83 82 Respiratory Rate Blood Pressure Pulse Oximetry 08/11/18 19:00 08/11/18 20:00 08/11/18 20:54 Temperature 98.3 F Pulse Rate 88 76 Respiratory Rate 16 Blood Pressure 103/59 L Pulse Oximetry 99 97 08/11/18 21:00 08/11/18 22:00 08/11/18 23:00 Temperature Pulse Rate 68 70 68 Respiratory Rate Blood Pressure Pulse Oximetry 08/12/18 00:00 08/12/18 01:00 08/12/18 02:00 Temperature 98.7 F Pulse Rate 73 66 66 Respiratory Rate 16 Blood Pressure 98/52 L Pulse Oximetry 95 08/12/18 03:00 08/12/18 04:00 08/12/18 05:00 Temperature 97.4 F L Pulse Rate 61 72 68 Respiratory Rate 16 Blood Pressure 104/51 L Pulse Oximetry 96 08/12/18 06:00 08/12/18 07:00 08/12/18 08:00 Temperature 96.8 F L Pulse Rate 56 L 61 85 Respiratory Rate 17 Blood Pressure 131/60 Pulse Oximetry 98 98 08/12/18 12:00 Temperature 97.9 F Pulse Rate 84 Respiratory Rate 20 Blood Pressure 145/69 H Pulse Oximetry 96 Intake & Output 08/11/18 08/12/18 08/12/18 18:59 06:59 18:59 Intake Total 1040 / 1040 730 / 730 100 / 100 Output Total 500 / 500 550 / 550 Balance 540 / 540 180 / 180 100 / 100 Weight 69.5 kg Intake: IV 350 / 350 250 / 250 100 / 100 Heparin/D5W 25,000 U/250 mL 25, 250 / 250 000 unit In 250 ml @ Per Protocol IV.CONT TITRATE PRN Rx #:[id number] Azithromycin Inj 500 MG In NS 250 / 250 Inj 250 ML @ 250 mls/hr IV.SIG Q24H SALMA Rx#:[id number] Rocephin Inj 1,000 MG In NS Inj 100 / 100 100 / 100 100 ML @ 200 mls/hr IV.SIG Q24H SALMA Rx#:[id number] Oral 690 / 690 480 / 480 Output: Urine 500 / 500 550 / 550 Narrative: GENERAL: Well-nourished, well-developed patient. SKIN: Warm and dry. HEAD: Normocephalic. EYES: No scleral icterus. No injection or drainage. NECK: Supple, trachea midline. No JVD or lymphadenopathy. CARDIOVASCULAR: Regular rate and rhythm without murmurs, gallops, or rubs. RESPIRATORY: Breath sounds equal bilaterally. No accessory muscle use. GASTROINTESTINAL: Abdomen soft, non-tender, nondistended. MUSCULOSKELETAL: No cyanosis, or edema. BACK: Nontender without obvious deformity. No CVA tenderness. Results Labs CBC & Chem 7: 08/12/18 04:40 08/10/18 13:22 Assessment and Plan (1) CAD (coronary artery disease), [place] coronary artery: Code(s): I25.10 - Atherosclerotic heart disease of [place] coronary artery without angina pectoris Status: Acute (2) Hypertension: Code(s): I10 - Essential (primary) hypertension Status: Acute (3) BPH (benign prostatic hyperplasia): Code(s): N40.0 - Benign prostatic hyperplasia without lower urinary tract symptoms Status: Acute (4) Hypertension: Code(s): I10 - Essential (primary) hypertension Status: Acute Plan Mr. Serna is a pleasant 87-year-old male with a history of hypertension, AAA, CAD, hyperlipidemia, hypothyroidism, BPH and CKD stage III was a transfer from [facility] in [place] for evaluation by cardiothoracic surgery. Due to 3- day duration of chest pain, patient went to [facility] where he underwent cardiac catheterization. However he was apparently told that there was no blockage to be stented. Subsequently he was transferred to [facility] to be evaluated by cardiothoracic surgery. Likely multivessel coronary artery disease Hypertension Hyperlipidemia Due to ongoing chest pain, patient is currently on heparin drip. Cardiothoracic surgery following. Likely CABG on 08/14/2018. Continue aspirin 81 mg, Lipitor 40 mg, carvedilol 3.125 mg twice daily Brilinta is on hold. Last dose was taken on 08/09/2018. Morphine for pain. Probable pneumonia Continue azithromycin and ceftriaxone - we can continue for 7 days total. Patient is currently on room air. Full code. Heparin drip. _ (1) BPH (benign prostatic hyperplasia) Qualifiers: Lower urinary tract symptom detail: Lower urinary tract symptom presence: (2) CAD (coronary artery disease), [place] coronary artery Qualifiers: Associated angina: [place] vs. transplanted heart: (3) Hypertension Qualifiers: Hypertension type: (4) Hypertension Qualifiers: Hypertension type:
--- NOTE | 2018-08-12 19:51 | ECG ---
Date Performed: 08/12/2018 Time Performed: 14:00:14 PTAGE: 87 years EKG: Sinus rhythm with borderline 1st degree A-V block. Left bundle branch block Abnormal ECG Compared to PREVIOUS TRACING , no longer tachycardic PREVIOUS TRACIN08/10/2018 18.13 DOCTOR: Peace Chandler Interpretating Date/Time 08/12/2018 19:50:49
[2018-08-12 23:15] LABS: Bilirubin,Urine Negative (Negative); Clarity,Urine Clear (Clear); Color,Urine Yellow (Yellw/Straw); Glucose,Urine (UA) Negative (Negative); Hyaline Casts,Urine 3 /lpf (0-3); Leukocyte Esterase,Urine Negative (Negative); Mucus,Urine Few /lpf (Occasional); Nitrite,Urine Negative (Negative); Specific Gravity,Urine 1.013 (1.002-1.035)
[2018-08-13] MEDS: Levothyroxine 50 MCG Tablet PO SCH (06:00)
[2018-08-13] MEDS: Nitroglycerin Drip Premix 50 MG/250 ML BOTTLE IV.CONT PRN (06:01)
[2018-08-13] MEDS: Famotidine 20 MG Tablet PO SCH (08:35)
[2018-08-13] MEDS: Docusate Sodium 100 MG Capsule PO SCH ×2 (08:35→21:02)
[2018-08-13] MEDS: Doxazosin 1 MG Tablet PO SCH (08:35)
[2018-08-13] MEDS: Furosemide 20 MG Tablet PO SCH (08:36)
[2018-08-13] MEDS: Azithromycin Inj 500 MG in Sodium Chlor 0.9% Inj 250 ML IV.SIG SCH (10:30)
[2018-08-13] MEDS ORDERED: Bacitracin Oint 0.9 GM Packet TOPICAL ONE (11:04)
[2018-08-13] MEDS: Heparin Drip 25,000 UNIT/250 ML BAG IV.CONT PRN (17:05)
--- NOTE | 2018-08-13 17:58 | CT ---
EXAM DATE: 08/13/2018 5:50 PM EST AGE/SEX: 87 years / Male INDICATIONS: Pre op CABG. CLINICAL DATA: This is the patient's initial encounter. Patient reports that signs and symptoms have been present for 1 day and indicates a pain score of 4/10. MEDICAL/SURGICAL HISTORY: Aneurysm, abdominal. Cardiovascular disease. Carcinoma, prostatic. Chr onic kidney disease Coronary artery stent. RADIATION DOSE: 7.34 CTDI (mGy) COMPARISON: No prior exams available for comparison. TECHNIQUE: Multiple contiguous axial images were obtained through the chest without contrast. Image s were obtained in suspended respiration using multiple row detector helical technique. Using automa moreno exposure control and adjustment of the mA and/or kV according to patient size, radiation dose was kept as low as reasonably achievable to obtain optimal diagnostic quality images. DICOM format imag e data is available electronically for review and comparison. FINDINGS: Lungs: Lungs are significant for diffuse interstitial and intralobular septal thickening identified within the right upper lobe and bilateral lower lobes, right greater than left. There is mild volume loss seen within the right hemithorax as compared to the left. No evidence of concerning pulmonary no dule or mass. Mediastinum: Heart size is enlarged with extensive atherosclerosis and heavy calcified coronary sarai ry disease seen within the LAD, origin of the left circumflex and right coronary artery. Pleurae: No evidence of focal thickening or pleural effusion. Axillae: Unremarkable. Bony Structures: Unremarkable. Miscellaneous: The examination was extended to include the upper abdomen, and both adrenal glands ar e normal in size and configuration. CONCLUSION: 1. Extensive atherosclerosis as noted above. 2. Interstitial fibrosis as noted above. Electronically signed by: Damaris Ritchie MD Board Certified Radiologist 08/13/2018 5:56 PM EST
--- NOTE | 2018-08-13 21:56 | P.PNIM ---
Subjective Interval history: Follow-up for acute coronary syndrome. Doing well. No chest pain, SOB, fever, chills. Family at bedside. Physical Exam Vital signs: Vital Signs 08/12/18 22:00 08/12/18 23:00 08/13/18 00:00 Temperature 97.8 F Pulse Rate 69 72 71 Respiratory Rate 18 Blood Pressure 124/57 L Pulse Oximetry 97 08/13/18 01:00 08/13/18 02:00 08/13/18 03:00 Temperature Pulse Rate 69 70 70 Respiratory Rate 18 Blood Pressure Pulse Oximetry 08/13/18 04:00 08/13/18 05:00 08/13/18 05:31 Temperature 97.8 F Pulse Rate 69 75 75 Respiratory Rate 21 Blood Pressure 119/57 L Pulse Oximetry 96 08/13/18 07:00 08/13/18 08:00 08/13/18 10:00 Temperature 96.5 F L Pulse Rate 59 L 67 58 L Respiratory Rate 22 Blood Pressure 131/58 L Pulse Oximetry 97 97 08/13/18 11:00 08/13/18 12:00 08/13/18 13:00 Temperature 96.9 F L Pulse Rate 65 71 74 Respiratory Rate 21 Blood Pressure 95/54 L Pulse Oximetry 99 08/13/18 15:00 08/13/18 16:00 08/13/18 18:00 Temperature 96.3 F L Pulse Rate 73 82 64 Respiratory Rate 21 Blood Pressure 118/56 L Pulse Oximetry 99 08/13/18 19:00 08/13/18 20:00 Temperature 97.8 F Pulse Rate 87 Respiratory Rate 20 Blood Pressure 154/81 H Pulse Oximetry 99 99 Intake & Output 08/13/18 08/13/18 08/14/18 06:59 18:59 06:59 Intake Total 645 / 645 1546 / 1546 Output Total 400 / 400 1025 / 1025 Balance 245 / 245 521 / 521 Weight 70 kg Intake: IV 165 / 165 546 / 546 Heparin/D5W 25,000 U/250 mL 25, 196 / 196 000 unit In 250 ml @ Per Protocol IV.CONT TITRATE PRN Rx #:[id number] Nitroglycerin Drip Premix 50 mg 165 / 165 In 250 ml @ 5 MCG/MIN 1.5 mls/ hr IV.CONT TITRATE PRN Rx#: [id number] Azithromycin Inj 500 MG In NS 250 / 250 Inj 250 ML @ 250 mls/hr IV.SIG Q24H SALMA Rx#:[id number] Rocephin Inj 1,000 MG In NS Inj 100 / 100 100 ML @ 200 mls/hr IV.SIG Q24H SALMA Rx#:[id number] Oral 480 / 480 1000 / 1000 Output: Urine 400 / 400 1025 / 1025 Other: # Voids 2 3 Date of Last Bowel Movement 08/10/18 08/10/18 08/10/18 # Bowel Movements 0 Narrative: GENERAL: Well-nourished, well-developed patient. SKIN: Warm and dry. HEAD: Normocephalic. EYES: No scleral icterus. No injection or drainage. NECK: Supple, trachea midline. No JVD or lymphadenopathy. CARDIOVASCULAR: Regular rate and rhythm without murmurs, gallops, or rubs. RESPIRATORY: Breath sounds equal bilaterally. No accessory muscle use. GASTROINTESTINAL: Abdomen soft, non-tender, nondistended. MUSCULOSKELETAL: No cyanosis, or edema. BACK: Nontender without obvious deformity. No CVA tenderness. Results Labs CBC & Chem 7: 08/12/18 04:40 08/10/18 13:22 Imaging Imaging: Impressions Chest CT 08/13/18 00:16 CONCLUSION: 1. Extensive atherosclerosis as noted above. 2. Interstitial fibrosis as noted above. Assessment and Plan (1) CAD (coronary artery disease), [place] coronary artery: Code(s): I25.10 - Atherosclerotic heart disease of [place] coronary artery without angina pectoris Status: Acute (2) Hypertension: Code(s): I10 - Essential (primary) hypertension Status: Acute (3) BPH (benign prostatic hyperplasia): Code(s): N40.0 - Benign prostatic hyperplasia without lower urinary tract symptoms Status: Acute (4) Hypertension: Code(s): I10 - Essential (primary) hypertension Status: Acute Plan Mr. Serna is a pleasant 87-year-old male with a history of hypertension, AAA, CAD, hyperlipidemia, hypothyroidism, BPH and CKD stage III was a transfer from [facility] in [place] for evaluation by cardiothoracic surgery. Due to 3- day duration of chest pain, patient went to [facility] where he underwent cardiac catheterization. However he was apparently told that there was no blockage to be stented. Subsequently he was transferred to [facility] to be evaluated by cardiothoracic surgery. Likely multivessel coronary artery disease Hypertension Hyperlipidemia Due to ongoing chest pain, patient is currently on heparin drip. Cardiothoracic surgery following. Likely CABG on 08/14/2018. Continue aspirin 81 mg, Lipitor 40 mg, carvedilol 3.125 mg twice daily Brilinta is on hold. Last dose was taken on 08/09/2018. Morphine for pain. Probable pneumonia Continue azithromycin and ceftriaxone - we can continue for 7 days total. Patient is currently on room air. Full code. Heparin drip. _ (1) BPH (benign prostatic hyperplasia) Qualifiers: Lower urinary tract symptom detail: Lower urinary tract symptom presence: (2) CAD (coronary artery disease), [place] coronary artery Qualifiers: Associated angina: [place] vs. transplanted heart: (3) Hypertension Qualifiers: Hypertension type: (4) Hypertension Qualifiers: Hypertension type:
[2018-08-14] MEDS ORDERED: Heparin - SQ 10,000 UNITS/ML Vial ONE (06:32)
[2018-08-14] MEDS: Levothyroxine 50 MCG Tablet PO SCH (07:13)
[2018-08-14] MEDS ORDERED: Phenylephrine/NS 1000 MCG/10ML Syringe IV.PUSH ONE ×2 (07:23)
[2018-08-14] MEDS ORDERED: Normosol-R pH 7.4 Inj 2,000 ML IV.CONT ONE (07:23)
[2018-08-14] MEDS ORDERED: DEXTROSE 5% IV.SIG ONE (07:23)
[2018-08-14] MEDS ORDERED: WATER IV.SIG ONE (07:23)
[2018-08-14] MEDS ORDERED: Dextrose 5% in Water Inj 100 ML IV.SIG ONE (07:23)
[2018-08-14] MEDS ORDERED: Succinylcholine Inj 100 MG/5 ML Syringe IV.PUSH ONE (07:23)
[2018-08-14] MEDS ORDERED: Propofol Inj 500 MG/50 ML Vial IV.SIG ONE (07:23)
[2018-08-14] MEDS ORDERED: Atropine Inj 1 MG/10 ML Syringe IV.PUSH ONE (07:23)
[2018-08-14] MEDS ORDERED: Dexmedetomidine Inj 200 MCG/2 ML Vial IV.CONT ONE (07:23)
[2018-08-14] MEDS ORDERED: Heparin - SQ 10,000 UNITS/ML Vial OTHER ONE (07:23)
[2018-08-14] MEDS ORDERED: ATROPINE 0.4 MG/ML IV.PUSH ONE (07:23)
[2018-08-14] MEDS ORDERED: Esmolol Bolus Inj 100 MG/10 ML Vial IV.PUSH ONE (07:23)
[2018-08-14] MEDS ORDERED: Calcium Chloride Inj 1 GM/10 ML Syringe IV.CONT ONE (07:23)
[2018-08-14] MEDS ORDERED: Protamine Sulfate Inj 50 MG/5 ML Vial IV.CONT ONE (07:23)
[2018-08-14] MEDS ORDERED: Sodium Chlor 0.9% Inj 250 ML IV.CONT ONE (07:23)
[2018-08-14] MEDS ORDERED: ceFAZolin 2 GM Premix Inj 2 GM/50 ML PIGGYBACK IV.SIG ONE (08:18)
[2018-08-14] MEDS: Azithromycin Inj 500 MG in Sodium Chlor 0.9% Inj 250 ML IV.SIG SCH (10:19)
[2018-08-14] MEDS: Doxazosin 1 MG Tablet PO SCH (10:19)
[2018-08-14] MEDS: Docusate Sodium 100 MG Capsule PO SCH ×2 (10:19→20:37)
[2018-08-14] MEDS: Furosemide 20 MG Tablet PO SCH (10:19)
[2018-08-14] MEDS: Famotidine 20 MG Tablet PO SCH (10:20)
[2018-08-14] MEDS ORDERED: Potassium Chlor 20 mEq Premix 20 MEQ/100 ML PIGGYBACK IV.SIG PRN ×3 (11:31)
[2018-08-14] MEDS ORDERED: Magnesium Sulfate Inj 2 GM in Sodium Chlor 0.9% Inj 96 ML IV.SIG PRN ×4 (11:31)
[2018-08-14] MEDS ORDERED: Insulin Regular (For Infusion) 100 UNIT in Sodium Chlor 0.9% Inj 99 ML IV.CONT PRN (11:31)
[2018-08-14] MEDS ORDERED: Phenylephrine Inj 40 MG in Sodium Chlor 0.9% Inj 496 ML IV.CONT PRN (11:31)
[2018-08-14] MEDS ORDERED: Calcium Chloride Inj 1 GM in Sodium Chlor 0.9% Inj 100 ML IV.SIG PRN (11:31)
[2018-08-14] MEDS ORDERED: Calcium Chloride Inj 1 GM/10 ML Syringe IV.PUSH PRN (11:31)
[2018-08-14] MEDS ORDERED: Post-op Orders (for Pharmacy) OTHER STA (11:31)
[2018-08-14] MEDS ORDERED: Dexmedetomidine Inj 200 MCG in Sodium Chlor 0.9% Inj 48 ML IV.CONT PRN (11:31)
[2018-08-14] MEDS ORDERED: EPINEPHrine (1:1000) Inj 2 MG in Sodium Chlor 0.9% Inj 248 ML IV.CONT PRN (11:31)
[2018-08-14] MEDS ORDERED: Metoprolol Inj 5 MG/5 ML Vial IV.PUSH PRN (11:31)
[2018-08-14] MEDS ORDERED: RESP: Racemic Epinephrine 2.25% 0.5 ML Neb NEB PRN (11:31)
[2018-08-14] MEDS ORDERED: Morphine Sulfate Inj 2 MG/ML Vial IV.PUSH PRN (11:31)
[2018-08-14] MEDS ORDERED: Dextrose 50% in Water 50 ML Vial IV.PUSH PRN (11:31)
[2018-08-14] MEDS ORDERED: hydrALAZINE HCl Inj 20 MG/ML Vial IV.PUSH PRN (11:31)
--- NOTE | 2018-08-14 11:47 | P.OP ---
Date of procedure: 08/14/18 Anesthesia: GETA Surgeon: Cheyenne Jang MD Operation and Findings: PREPROCEDURE DIAGNOSES 1. Severe Single Vessel Coronary Artery Disease involving the RCA. 2. Critical In-Stent Restenosis 3. Moderate Left Ventricular Dysfunction 4. Acute Myocardial Infarction (NSTEMI) 5. Heavily Calcified Ascending Aorta POSTPROCEDURE DIAGNOSES Same SURGICAL PROCEDURE 1. Urgent Clamp Less Off-pump Coronary Artery Bypass Grafting x 1 with reverse saphenous vein graft to the posterior Descending branch of the right Coronary artery 2. Left leg Endoscopic Vein [place] 3. Intraoperative Vein Mapping. SURGEON Cheyenne Jang MD DATA ARCHITECT Neda Khan, [facility] ANESTHESIA General endotracheal MACHINE FITTER Jessica Burno, DONNA Terrell MD PREPARATION ChloraPrep. COUNTS Needle, sponge, and instrument counts were correct. DRAINS Two 32-Sinhal[place] mediastinal tubes. COMPLICATIONS None. INDICATIONS FOR PROCEDURE The patient is a 87-year-old presenting with chest pain and acute [place]. Patient was noted to have critical coronary artery disease with severe in-stent restenosis involving the RCA. The patient is being brought to the operating room for surgical revascularization therapy. PROCEDURE Patient was brought to the operating room and placed supine on the OR table. Following the induction of adequate general endotracheal anesthesia and placement of appropriate monitoring devices, intraoperative vein mapping was performed which revealed good-caliber conduit in bilateral lower extremities. The patient was then prepped and draped in standard sterile fashion. Next, 2500 units of intravenous heparin was given. The left greater saphenous vein was harvested endoscopically. This appeared to be a useable-caliber conduit. Median sternotomy was performed and the patient was systemically heparinized and anticoagulation monitored by serial ACT measurements. The pericardium was then divided in the midline, the cradle created and target analyzed. At this point, all anastomoses were performed in a beating-heart fashion using the Ma[place] stabilizing system. The RCA was noted to be heavily calcified throughout its entire proximal to mid course. There was a spared segment in the distal aspect of the RPDA branch which was used for the distal anastomosis. Segment of saphenous vein graft was then anastomosed to the RPDA (1.75 mm) in an end-to-side fashion using 7-0 Prolene. 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 This was used as a site for proximal anastomosis in a clamp less fashion using the Heartstring II device. The proximal anastomoses were then constructed to the ascending aorta in a running manner using 6-0 Prolene. All anastomotic sites were inspected and appeared to be hemostatic and patent. Protamine solution was given. Strict hemostasis was assured. The closure was undertaken. 2 ventricular pacing wires and chest tubes were placed. The pericardium was reapproximated in the midline. The sternum was approximated using sternal wires. The muscular and fascial layer were then closed in 3 layers. The endoscopic vein harvest site was closed in 2 layers. The patient tolerated the procedure well and was transferred to CVICU in stable condition.
[2018-08-14] MEDS ORDERED: ceFAZolin Inj 2,000 MG in Sodium Chlor 0.9% Inj 80 ML IV.SIG SCH (12:00)
[2018-08-14] MEDS: Albumin Human 5% Inj 250 ML IV.SIG PRN (12:30)
[2018-08-14] MEDS ORDERED: fentaNYL Citrate Inj 250 MCG/5 ML Ampul ONE (12:33)
--- NOTE | 2018-08-14 12:43 | XR ---
EXAM DATE: 08/14/2018 12:36 PM EST AGE/SEX: 87 years / Male INDICATIONS: Post op CABG. CLINICAL DATA: This is the patient's subsequent encounter. Patient reports that signs and symptoms h ave been present for 4 - 6 days and indicates a pain score of Nonresponsive. MEDICAL/SURGICAL HISTORY: . Aneurysm, abdominal. Cardiovascular disease. Carcinoma, prostatic. Chronic kidney disease. . Coronary artery stent. COMPARISON: [facility], CHEST 1V SINGLE AP, 08/10/2018. . FINDINGS: ET tube, mediastinal drain, nasogastric tube and central line are in good position. Mild interstitial edema is present in the right lung. Heart is minimally enlarged. There is no pneumothorax. CONCLUSION: Support apparatus in good position. Mediastinum appears appropriate. No pneumothorax. Electronically signed by: Iraj Paulino MD Board Certified Radiologist 08/14/2018 12:42 PM EST
--- NOTE | 2018-08-14 13:17 | P.CONCC ---
History of Present Illness Service: Critical care medicine Consult date: 08/14/18 Requesting Physician: Cheyenne Jang Reason for Consult: Critical care medicine management Primary Care Provider: UNKNOWN Chief Complaint: Chest pain History of Present Illness: This is an 87-year-old male. Date of admission 08/10/2018. Date of consultation 08/14/2018. Past medical history includes AAA, chronic kidney disease stage III 8, coronary artery disease with known stent, hypertension, hyperlipidemia, hypothyroidism hypoxic cancer. He also has BPH and obstructive sleep apnea. He presents to [facility] as a transfer from [place] [id number] for evaluation by cardiothoracic surgery. Prior to admission, patient states he has intermittent chest pain unrelieved with nitroglycerin. Most recent cardiac catheterization report revealed left main was a medium size without significant disease. LAD had no obstructive disease; the circumflex had no obstructive disease. The RCA had a 90+ percent in-stent restenosis where PCI was completed. He has also had an echocardiogram from 05/07/2018 showing an ejection fraction of 50%-55% Today, patient underwent an urgent clamp left off-pump coronary artery bypass grafting x1 with reverse saphenous vein graft to the posterior descending branch of the right coronary artery, left leg endoscopic vein harvesting and intraoperative vein mapping secondary to severe single-vessel coronary disease involving the RCA, critical in-stent restenosis, moderate LV dysfunction with acute myocardial infarction and a heavy calcified ascending aorta. Patient received 3300 cc crystalloid. 1400 cc EBL. 550 cc urine output. Patient received 1 PRBCs and 1 packed pleasant OR. 700 cc Cell Saver. The surgery was comp gated by long episodes of asystole which required 1 mg of atropine 1 mg of epinephrine. Patient is currently only on insulin drip at 6 units an hour and receiving potassium IV. He is currently off all sedation and the epinephrine drip has been turned off. Here he is currently on SIMV ventilation and attempt to wean to extubate. There has been approximately 170 cc output from chest tube since the OR. Review of Systems unobtainable due to endotracheal tube PMFSH - History History Provided By: Patient - Medical History Medical History: Medical History (Last Reviewed 08/14/18 @ 13:16 by Nicholas Phillip MD) AAA (abdominal aortic aneurysm) BPH (benign prostatic hyperplasia) CKD (chronic kidney disease) Coronary artery disease HLD (hyperlipidemia) HTN (hypertension) Heart disease Hypothyroidism Prostate cancer Sleep apnea - Surgical History Surgical History: Surgical History (Last Reviewed 08/14/18 @ 13:16 by Nicholas Phillip MD) H/O heart artery stent History of appendectomy History of cholecystectomy History of tonsillectomy - Family History Family History: Family History (Last Reviewed 08/14/18 @ 13:16 by Nicholas Phillip MD) Other Heart disease - Tobacco History Second Hand Smoke Exposure: No Smoking Status: Never smoker - Alcohol History How Often Do You Have a Drink Containing Alcohol: Never - Substance Use History Substance History: No History of Abuse Medications and Allergies Active Medications: Active Medications Acetaminophen (Tylenol) 650 mg PO Q4H PRN PRN Reason: Temp > 100.4 Hydrocodone Bitart/Acetaminophen ([place] Laager 5/325) 1 tab PO Q3H PRN PRN Reason: PAIN SCALE 1 TO 5 Albuterol (Duoneb Neb (Prn)) 1 ampul NEB Q2HR NEB PRN PRN Reason: WHEEZING Albuterol (Duoneb Neb (Daljit)) 1 ampul NEB Q6HR NEB [facility] Aspirin (Aspirin Chew) 81 mg PO DAILY [facility] Last Admin: 08/14/18 10:19 Dose: Not Given Atorvastatin Calcium (Lipitor) 40 mg PO HS [facility] Last Admin: 08/13/18 21:02 Dose: 40 mg Calcium Chloride (Calcium Chloride Inj) 0.5 gm IV.PUSH UNSCH PRN PRN Reason: SEE LABEL COMMENTS Carvedilol (Coreg) 3.125 mg PO BID [facility] Last Admin: 08/14/18 10:19 Dose: Not Given Chlorhexidine Gluconate (Hibiclens 4% Topical) 1 applicatio TOPICAL GLUE MOUNTER OPERATOR [facility] Stop: 08/16/18 12:22 Clopidogrel Bisulfate (Plavix) 75 mg PO DAILY [facility] Sodium Chloride 77.5 ml/Papaverine HCl 60 mg/Nitroglycerin 100 mcg/Diltiazem HCl 100 mg 0 ml IRRIGATION GLUE MOUNTER OPERATOR [facility] Stop: 08/16/18 12:22 Last Admin: 08/14/18 11:08 Dose: Not Given Sodium Chloride 1,000 ml/ (Vancomycin HCl 1,000 mg) 0 ml IRRIGATION GLUE MOUNTER OPERATOR [facility] Stop: 08/16/18 12:26 Last Admin: 08/14/18 08:58 Dose: 1 irrig.soln Dextrose (D50w Vial) 50 ml IV.PUSH UNSCH PRN PRN Reason: PER HYPOGLYCEMIA PROTOCOL Docusate Sodium (Colace) 100 mg PO BID [facility] Last Admin: 08/14/18 10:19 Dose: Not Given Doxazosin Mesylate (Cardura) 1 mg PO DAILY [facility] Last Admin: 08/14/18 10:19 Dose: Not Given Epinephrine (Racepinephrine 2.25% Neb) 0.5 ml NEB DAILY NEB PRN PRN Reason: STRIDOR Famotidine (Pepcid) 20 mg PO DAILY [facility] Last Admin: 08/14/18 10:20 Dose: Not Given Fentanyl Citrate (Fentanyl Inj) 25 mcg IV.PUSH Q1H PRN PRN Reason: BREAKTHROUGH PAIN Furosemide (Lasix) 20 mg PO DAILY [facility] Last Admin: 08/14/18 10:19 Dose: Not Given Hydralazine HCl (Apresoline Inj) 10 mg IV.PUSH Q4H PRN PRN Reason: SEE LABEL COMMENTS Azithromycin 500 mg/ Sodium (Chloride) 250 mls @ 250 mls/hr IV.SIG Q24H [facility] Last Admin: 08/14/18 10:19 Dose: Not Given Ceftriaxone Sodium 1,000 mg/ (Sodium Chloride) 100 mls @ 200 mls/hr IV.SIG Q24H [facility] Last Admin: 08/14/18 10:20 Dose: Not Given Vancomycin HCl 1,000 mg/ (Sodium Chloride) 250 mls @ 250 mls/hr IV.SIG GLUE MOUNTER OPERATOR [facility] Stop: 08/16/18 12:26 Last Admin: 08/14/18 08:57 Dose: Not Given Nitroglycerin/Dextrose (Nitroglycerin Drip Premix) 50 mg in 250 mls @ 1.5 mls/ hr IV.CONT TITRATE PRN; Protocol PRN Reason: Per Protocol Last Titration: 08/13/18 23:00 Dose: 0 mcg/min, 0 mls/hr Acetaminophen (Ofirmev Inj) 1,000 mg in 100 mls @ 400 mls/hr IV.SIG Q6H [facility] Stop: 08/15/18 06:14 Albumin Human (Buminate 5% Inj) 250 mls @ 250 mls/hr IV.SIG UNSCH PRN PRN Reason: SEE LABEL COMMENTS Calcium Chloride 1 gm/ Sodium (Chloride) 110 mls @ 100 mls/hr IV.SIG PRN PRN PRN Reason: SEE LABEL COMMENTS Dexmedetomidine HCl 200 mcg/ (Sodium Chloride) 50 mls @ 3.42 mls/hr IV.CONT TITRATE PRN; Protocol PRN Reason: Per Protocol Epinephrine HCl 2 mg/ Sodium (Chloride) 250 mls @ 22.5 mls/hr IV.CONT TITRATE PRN; Protocol PRN Reason: Per Protocol Insulin Human Regular 100 unit (/ Sodium Chloride) 100 mls @ 3 mls/hr IV.CONT TITRATE PRN; Protocol PRN Reason: See Protocol Lactated Ringer's (Lr 1000 Ml Inj) 500 mls @ 500 mls/hr IV.SIG .Q1H PRN PRN Reason: SEE LABEL COMMENTS Magnesium Sulfate 2 gm/ Sodium (Chloride) 100 mls @ 50 mls/hr IV.SIG PRN PRN PRN Reason: SEE LABEL COMMENTS Magnesium Sulfate 2 gm/ Sodium (Chloride) 100 mls @ 50 mls/hr IV.SIG PRN PRN PRN Reason: SEE LABEL COMMENTS Phenylephrine HCl 40 mg/ (Sodium Chloride) 500 mls @ 30 mls/hr IV.CONT TITRATE PRN; Protocol PRN Reason: Per Protocol Potassium Chloride (Kcl 20 Meq Premix Inj) 20 meq in 100 mls @ 50 mls/hr IV.SIG PRN PRN PRN Reason: SEE LABEL COMMENTS Potassium Chloride (Kcl 20 Meq Premix Inj) 20 meq in 100 mls @ 50 mls/hr IV.SIG PRN PRN PRN Reason: SEE LABEL COMMENTS Potassium Chloride (Kcl 20 Meq Premix Inj) 20 meq in 100 mls @ 50 mls/hr IV.SIG PRN PRN PRN Reason: SEE LABEL COMMENTS Cefazolin Sodium/Dextrose (Ancef 2 Gm Premix Inj) 2 gm in 50 mls @ 100 mls/hr IV.SIG Q8H [facility] Stop: 08/16/18 00:29 Levothyroxine Sodium (Synthroid) 50 mcg PO DAILY@0600 [facility] Last Admin: 08/14/18 07:13 Dose: Not Given Meperidine HCl (Demerol Inj) 12.5 mg IV.PUSH Q4H PRN PRN Reason: SHIVERING Metoprolol Tartrate (Lopressor Inj) 2.5 mg IV.PUSH Q1H PRN PRN Reason: SEE LABEL COMMENTS Morphine Sulfate (Morphine Inj) 1 mg IV.PUSH Q10M PRN PRN Reason: PAIN SCALE 1 TO 5 Ondansetron HCl (Zofran Inj) 4 mg IV.PUSH Q6H PRN PRN Reason: NAUSEA OR VOMITING Pantoprazole Sodium (Protonix) 40 mg PO DAILY@06 [facility]ALJIT Phenylephrine HCl (Neosynephrine Inj) 0.1 mg IV.PUSH UNSCH PRN PRN Reason: SEE LABEL COMMENTS Potassium Chloride (K-Dur) 20 meq PO UNSCH PRN PRN Reason: SEE LABEL COMMENTS Potassium Chloride (K-Dur) 40 meq PO UNSCH PRN PRN Reason: SEE LABEL COMMENTS Sodium Bicarbonate (Sodium Bicarbonate 8.4% Inj) 50 meq IV.PUSH UNSCH PRN PRN Reason: SEE LABEL COMMENTS Sodium Bicarbonate (Sodium Bicarbonate 8.4% Inj) 100 meq IV.PUSH UNSCH PRN PRN Reason: SEE LABEL COMMENTS Sodium Chloride (Ns Flush) 2 ml IV.FLUSH BID [facility]ALJIT Last Admin: 08/14/18 10:20 Dose: Not Given Sodium Chloride (Ns Flush) 2 ml IV.FLUSH PRN PRN PRN Reason: FLUSH AFTER USING IV ACCESS Temazepam (Restoril) 7.5 mg PO HS PRN PRN Reason: SLEEP Last Admin: 08/13/18 21:02 Dose: 7.5 mg Terbutaline Sulfate (Brethine Inj) 1 mg SQ UNSCH PRN PRN Reason: For Extravasation Allergies Allergy/AdvReac Type Severity Reaction Status Date / Time ciprofloxacin [From Cipro] Allergy unknown Verified 08/10/18 01:34 diphenhydramine Allergy unknown Verified 08/10/18 01:34 [From Benadryl] Penicillins Allergy unknown Verified 08/10/18 01:34 sulfamethoxazole Allergy unknown Verified 08/10/18 01:34 [From Bactrim] terazosin [From Hytrin] Allergy unknown Verified 08/10/18 01:34 trazodone Allergy unknown Verified 08/10/18 01:34 trimethoprim [From Bactrim] Allergy unknown Verified 08/10/18 01:34 bee stings Allergy unknown Uncoded 08/10/18 01:34 Home Medications Medication Instructions Recorded Confirmed Type azithromycin 500 mg IV Q24H 08/10/18 08/10/18 History ceftriaxone 1 g IV DAILY 08/10/18 08/10/18 History docusate sodium 100 mg PO BID 08/10/18 08/10/18 History famotidine 20 mg PO DAILY 08/10/18 08/10/18 History morphine 2 mg IV Q4HR PRN 08/10/18 08/10/18 History oxycodone-acetaminophen 1 tab PO Q4-6H PRN 08/10/18 08/10/18 History sennosides-docusate sodium [Senna 2 tab PO HS PRN 08/10/18 08/10/18 History with Docusate Sodium] Physical Exam Vital signs: Vital Signs 08/13/18 15:00 08/13/18 16:00 08/13/18 18:00 Temperature 96.3 F L Pulse Rate 73 82 64 Respiratory Rate 21 Blood Pressure 118/56 L Pulse Oximetry 99 08/13/18 19:00 08/13/18 20:00 08/13/18 23:00 Temperature 97.8 F Pulse Rate 87 64 Respiratory Rate 20 Blood Pressure 154/81 H Pulse Oximetry 99 99 08/14/18 00:00 08/14/18 03:00 08/14/18 03:28 Temperature 98.2 F Pulse Rate 71 57 L 53 L Respiratory Rate 20 16 16 Blood Pressure 106/50 L 103/60 Pulse Oximetry 99 99 08/14/18 12:00 Temperature Pulse Rate Respiratory Rate 14 Blood Pressure Pulse Oximetry 100 Intake & Output 08/13/18 08/14/18 08/14/18 18:59 06:59 18:59 Intake Total 1546 / 1546 480 / 480 4000 / 4000 Output Total 1025 / 1025 475 / 475 1950 / 1950 Balance 521 / 521 5 / 5 2049 / 2049 Weight 68.5 kg Intake: IV 546 / 546 Heparin/D5W 25,000 U/250 mL 25, 196 / 196 000 unit In 250 ml @ Per Protocol IV.CONT TITRATE PRN Rx #:[id number] Azithromycin Inj 500 MG In NS 250 / 250 Inj 250 ML @ 250 mls/hr IV.SIG Q24H DALJIT Rx#:[id number] Rocephin Inj 1,000 MG In NS Inj 100 / 100 100 ML @ 200 mls/hr IV.SIG Q24H DALJIT Rx#:[id number] Oral 1000 / 1000 480 / 480 Anesthesia Amount 3300 / 3300 Cell Saver Amount 700 / 700 Output: Urine 1025 / 1025 475 / 475 Estimated Blood Loss 1400 / 1400 Urine Amount (Catheter) 550 / 550 Indwelling Temp Sensing 550 / 550 Catheter Other: # Voids 3 Date of Last Bowel Movement 08/10/18 08/10/18 # Bowel Movements 0 Narrative: GENERAL: 87-year-old male currently orotracheally intubated SKIN: Warm and dry. HEAD: Atraumatic. Normocephalic. EYES: Pupils equal and round about 4 mm bilaterally and reactive. No scleral icterus. No injection or drainage. ENT: No nasal bleeding or discharge. Mucous membranes pink and moist. NECK: Trachea midline. No JVD. Right IJ cordis with dual-lumen catheter is clean dry and intact CARDIOVASCULAR: Regular rate and rhythm. S1, S2 no S4 RESPIRATORY: No accessory muscle use. Clear to auscultation. Breath sounds equal bilaterally. Left mediastinal/chest tube with sanguinous output GASTROINTESTINAL: Abdomen soft, non-tender, nondistended. Hypoactive bowel sounds appreciated MUSCULOSKELETAL: Extremities without clubbing, cyanosis, or edema. Left lower extremity wrapped in Rodriguez bandage. No obvious deformities. Right radial arterial line is clean dry and intact NEUROLOGICAL: Currently sedated on the ventilator post CABG. Positive gag and cough. Positive corneal reflex. Withdraws to pain. - Urinary Catheter Management Indwelling Temp Sensing Catheter Cath placed during this visit: yes Reason for continuing: Hourly intake/output Insertion date: 08/14/18 Insertion time: 08:00 Septic Shock Reassessment Septic shock perfusion: reassessment completed Assessment and Plan - Assessment and Plan Plan: Neuro/Psych: Pain management with fentanyl 25 mcg IV every 8 hours, morphine sulfate 1 mg every 10 minutes and [place] Laager 5/325 1 tablet every 4 hours as needed pain Ofirmev 1 g IV every 6 hours x4 dosages ordered per CT surgery CV: Postop day #0urgent clamp left off-pump coronary artery bypass grafting x1 with reverse saphenous vein graft to the posterior descending branch of the right coronary artery, left leg endoscopic vein harvesting and intraoperative vein mapping secondary to severe single-vessel coronary disease involving the RCA, critical in-stent restenosis, Coronary artery disease Essential hypertension Hyperlipidemia History of AAA Continue aspirin 81 mg daily Continue atorvastatin 40 mg daily for hyperlipidemia Currently off all vasopressors. Continue clopidogrel 75 mg daily. He was previously on Brilinta. Carvedilol 3.125 mg twice daily and furosemide 20 mg daily Resp: Obstructive sleep apnea Community acquired pneumonia Currently on traction and azithromycin for community acquired pneumonia SIMV/AC ventilation with attempt to wean off today. FiO2 currently 50% Albuterol/ipratropium is every 6 hours and every 2 hours. Dyspnea Follow-up on post surgery chest x-ray and ABG. Monitor output from chest tube GI: Currently n.p.o. status Famotidine for GI prophylaxis Docusate sodium/senna 1 tablet twice daily for bowel regimen : BPH Cobos catheter has been placed for accurate I's and O's in a critical patient Continue doxazosin 1 mg daily Endo: Hypothyroidism Currently on insulin drip at 6 units an hour to maintain tight glycemic control Currently not on levothyroxine Renal: Chronic kidney disease stage III a Last creatinine documented as 1.4. Recheck BMP in a.m. 08/15 Monitor urine output Accurate I's and O's Heme: History of prostate cancer Normocytic anemia Thrombocytopenia Check CBC in a.m. and on GEM now with bleeding Transfuse per CT surgery program ID: Currently on cefazolin 2 g IV every 8 hours x5 dosages [address] surgery Continue ceftriaxone and azithromycin for 3 acquired pneumonia MSK: PT evaluate and treat FEN: Replace electrolytes per CT surgery likely protocol Access -Right IJ cordis with dual-lumen catheter day #1 placed in OR -Right radial arterial line day 1 placed in OR Prophylaxis -GI -famotidine -DVT -LIGIA hose right lower extremity. Pharmacological prophylaxis when okay with CT surgery Level 2 consult Code Status: Full code
[2018-08-14] MEDS ORDERED: Clevidipine Inj 25 MG/50 ML VIAL ONE (14:52)
[2018-08-14] MEDS: fentaNYL Citrate Inj 100 MCG/2 ML Ampul IV.PUSH PRN ×2 (15:00→20:43)
[2018-08-14] MEDS: ceFAZolin 2 GM Premix Inj 2 GM/50 ML PIGGYBACK IV.SIG SCH ×2 (15:00→23:03)
[2018-08-14] MEDS ORDERED: Clevidipine Inj 25 MG/50 ML VIAL IV.CONT PRN (15:34)
[2018-08-15] MEDS: Albumin Human 5% Inj 250 ML IV.SIG PRN (00:54)
[2018-08-15] MEDS: fentaNYL Citrate Inj 100 MCG/2 ML Ampul IV.PUSH PRN ×2 (02:09→06:43)
[2018-08-15 04:42] LABS: Hematocrit 27.2 % (39.0-51.0); Hemoglobin 9.4 gm/dL (13.0-17.0); Mean Corpuscular HGB Conc 34.6 % (32.0-36.0); Mean Corpuscular Hemoglobin 31.5 pg (27.0-34.0); Mean Corpuscular Volume 91.2 fL (80.0-100.0); Mean Platelet Volume 7.7 fL (7.0-11.0); Platelet Count 139 th/mm3 (150-450); Red Blood Count 2.99 mil/mm3 (4.50-5.90); Red Cell Distribution Width 14.5 % (11.6-17.2); White Blood Count 7.6 th/mm3 (4.0-11.0)
[2018-08-15 04:57] LABS: Calcium 7.6 mg/dL (8.5-10.1); Carbon Dioxide 25.4 meq/L (21.0-32.0); Magnesium 2.2 mg/dL (1.5-2.5); Potassium 4.8 meq/L (3.5-5.1)
--- NOTE | 2018-08-15 06:39 | XR ---
EXAM DATE: 08/15/2018 6:09 AM EST AGE/SEX: 87 years / Male INDICATIONS: Post Op CABG. CLINICAL DATA: This is the patient's subsequent encounter. Patient reports that signs and symptoms h ave been present for 4 - 6 days and indicates a pain score of 5/10. MEDICAL/SURGICAL HISTORY: Aneurysm, abdominal. Cardiovascular disease. Chronic kidney disease . Coronary artery stent. [place] [facility] [place]14/[place]. . FINDINGS: A single AP view of the chest demonstrates interval extubation and removal of the nasogastric tube. T horacostomy tubes and central lines remain. Mild consolidation involving the medial left lung base. T his is new. Interstitial prominence throughout the lungs is stable. No effusions. Heart is mildly enl arged. Venous sternotomy wires. CONCLUSION: Mild left basilar consolidation likely relating to atelectasis. Electronically signed by: Tobias Garcia MD Board Certified Radiologist 08/15/2018 6:38 AM EST
[2018-08-15] MEDS: Levothyroxine 50 MCG Tablet PO SCH (06:43)
--- NOTE | 2018-08-15 06:43 | P.PNCC ---
Subjective Subjective Remarks/Hospital Course: This is an 87-year-old male. Date of admission 08/10/2018. Date of consultation 08/14/2018. Past medical history includes AAA, chronic kidney disease stage III 8, coronary artery disease with known stent, hypertension, hyperlipidemia, hypothyroidism hypoxic cancer. He also has BPH and obstructive sleep apnea. He presents to [facility] as a transfer from [place] [id number] for evaluation by cardiothoracic surgery. Prior to admission, patient states he has intermittent chest pain unrelieved with nitroglycerin. Most recent cardiac catheterization report revealed left main was a medium size without significant disease. LAD had no obstructive disease; the circumflex had no obstructive disease. The RCA had a 90+ percent in-stent restenosis where PCI was completed. He has also had an echocardiogram from 05/07/2018 showing an ejection fraction of 50%-55% Today, patient underwent an urgent clamp left off-pump coronary artery bypass grafting x1 with reverse saphenous vein graft to the posterior descending branch of the right coronary artery, left leg endoscopic vein harvesting and intraoperative vein mapping secondary to severe single-vessel coronary disease involving the RCA, critical in-stent restenosis, moderate LV dysfunction with acute myocardial infarction and a heavy calcified ascending aorta. Patient received 3300 cc crystalloid. 1400 cc EBL. 550 cc urine output. Patient received 1 PRBCs and 1 packed pleasant OR. 700 cc Cell Saver. The surgery was comp gated by long episodes of asystole which required 1 mg of atropine 1 mg of epinephrine. Patient is currently only on insulin drip at 6 units an hour and receiving potassium IV. He is currently off all sedation and the epinephrine drip has been turned off. Here he is currently on SIMV ventilation and attempt to wean to extubate. There has been approximately 170 cc output from chest tube since the OR. Subjective 08/15: Sitting in chair in no acute distress. -595 from chest tube since OR. Low urine output responded to albumin bolus. Hemodynamically stable. On nasal cannula. Complains chest discomfort from surgical site. Objective Vital Signs / I&O: Vital Signs 08/14/18 12:00 08/14/18 12:17 08/14/18 12:30 Temperature 96.4 F L 96.4 F L Pulse Rate 78 Respiratory Rate 14 14 Blood Pressure 90/50 L Pulse Oximetry 100 99 08/14/18 15:00 08/14/18 15:01 08/14/18 15:15 Temperature 96.1 F L 96.1 F L Pulse Rate 89 Respiratory Rate 10 L 8 L Blood Pressure 109/54 L Pulse Oximetry 94 L 97 08/14/18 15:50 08/14/18 16:25 08/14/18 17:00 Temperature Pulse Rate 93 H 88 Respiratory Rate 8 L 12 Blood Pressure 92/55 L Pulse Oximetry 97 96 08/14/18 19:00 08/14/18 21:10 08/14/18 21:13 Temperature 97.8 F Pulse Rate 85 88 Respiratory Rate 16 20 16 Blood Pressure 106/55 L Pulse Oximetry 96 08/14/18 22:32 08/14/18 23:00 08/15/18 02:08 Temperature 97.7 F Pulse Rate 98 H Respiratory Rate 16 16 Blood Pressure 115/55 L Pulse Oximetry 95 94 L 08/15/18 02:39 08/15/18 03:00 08/15/18 03:39 Temperature 97.6 F Pulse Rate 89 113 H Respiratory Rate 16 16 22 Blood Pressure 90/50 L Pulse Oximetry 91 L Intake & Output 08/14/18 08/14/18 08/15/18 06:59 18:59 06:59 Intake Total 480 / 480 5292 / 5292 640 / 640 Output Total 475 / 475 2975 / 2975 520 / 520 Balance 5 / 5 2317 / 2317 120 / 120 Weight 68.5 kg 77 kg Intake: IV 1022 / 1022 400 / 400 Cleviprex Inj 25 mg In 50 ml @ 6 / 6 1 MG/HR 2 mls/hr IV.CONT TITRATE PRN Rx#:[id number] NovoLIN R (IV Infusion) 100 16 / 16 UNIT In NS Inj 99 ML @ 3 UNITS/ HR 3 mls/hr IV.CONT TITRATE PRN Rx#:[id number] Ofirmev Inj 1,000 mg In 100 ml 200 / 200 100 / 100 @ 400 mls/hr IV.SIG Q6H SALMA Rx# :[id number] Buminate 5% Inj 250 ML @ 250 250 / 250 250 / 250 mls/hr IV.SIG UNSCH PRN Rx#: [id number] LR 1000 mL Inj 500 ML @ 500 mls 500 / 500 /hr IV.SIG .Q1H PRN Rx#: [id number] Ancef 2 GM Premix Inj 2 gm In 50 / 50 50 / 50 50 ml @ 100 mls/hr IV.SIG Q8H SALMA Rx#:[id number] Oral 480 / 480 240 / 240 Anesthesia Amount 3300 / 3300 Other 270 / 270 Cell Saver Amount 700 / 700 Output: Urine 475 / 475 Estimated Blood Loss 1400 / 1400 Urine Amount (Catheter) 1175 / 1175 325 / 325 Indwelling Temp Sensing 1175 / 1175 325 / 325 Catheter Chest Tube Drainage 400 / 400 195 / 195 Pleural/Mediastinal 400 / 400 195 / 195 Other: Other Intake Source Saline Solution Date of Last Bowel Movement 08/10/18 08/10/18 08/10/18 # Bowel Movements 0 Result Diagrams: 08/15/18 04:30 08/15/18 04:30 Imaging: Carotid Doppler Study 08/10/18 12:22 CONCLUSION: 1. Right Internal Carotid Artery: Moderate severity atherosclerotic plaque at the bifurcation without hemodynamically significant narrowing. 2. Left Internal Carotid Artery: Moderate severity atherosclerotic plaque at the bifurcation without hemodynamically significant narrowing. Lower Extremity Ultrasound 08/10/18 12:22 CONCLUSION: 1. Venous mapping as above Venous Doppler Study 08/10/18 12:22 CONCLUSION: No venous thrombosis of either lower extremity. Chest X-Ray 08/10/18 12:53 CONCLUSION: No acute pneumonia demonstrated. Mild, chronic appearing interstitial opacities and volume loss on the right. Chest CT 08/13/18 00:16 CONCLUSION: 1. Extensive atherosclerosis as noted above. 2. Interstitial fibrosis as noted above. Chest X-Ray 08/14/18 11:31 CONCLUSION: Support apparatus in good position. Mediastinum appears appropriate. No pneumothorax. Chest X-Ray 08/15/18 05:00 CONCLUSION: Mild left basilar consolidation likely relating to atelectasis. Objective Remarks: GENERAL: 87-year-old male currently sitting in chair in no acute distress SKIN: Warm and dry. HEAD: Atraumatic. Normocephalic. EYES: Pupils equal and round about 4 mm bilaterally and reactive. No scleral icterus. No injection or drainage. ENT: No nasal bleeding or discharge. Mucous membranes pink and moist. NECK: Trachea midline. No JVD. Right IJ cordis with dual-lumen catheter is clean dry and intact CARDIOVASCULAR: Regular rate and rhythm. S1, S2 no S4 RESPIRATORY: No accessory muscle use. Clear to auscultation. Breath sounds equal bilaterally. Left mediastinal/chest tube with sanguinous output -595 per GASTROINTESTINAL: Abdomen soft, non-tender, nondistended. Hypoactive bowel sounds appreciated MUSCULOSKELETAL: Extremities without clubbing, cyanosis, or edema. Left lower extremity wrapped in Rodriguez bandage. No obvious deformities. Right radial arterial line is clean dry and intact NEUROLOGICAL: Currently sitting in chair in no acute distress. Cranial nerves II through XII grossly intact. Strength is equal symmetric. Normal sensation. Assessment and Plan - Assessment and Plan Plan: Neuro/Psych: Pain management with fentanyl 25 mcg IV every 8 hours, morphine sulfate 1 mg every 10 minutes and [place] 5/325 1 tablet every 4 hours as needed pain Ofirmev 1 g IV every 6 hours x4 dosages ordered per CT surgery has been completed CV: Postop day # 1 urgent clamp left off-pump coronary artery bypass grafting x1 with reverse saphenous vein graft to the posterior descending branch of the right coronary artery, left leg endoscopic vein harvesting and intraoperative vein mapping secondary to severe single-vessel coronary disease involving the RCA, critical in-stent restenosis, Coronary artery disease Essential hypertension Hyperlipidemia History of AAA Continue aspirin 81 mg daily Continue atorvastatin 40 mg daily for hyperlipidemia Currently off all vasopressors. Continue clopidogrel 75 mg daily. He was previously on Brilinta. Carvedilol 3.125 mg twice daily and furosemide 20 mg daily Resp: Obstructive sleep apnea Community acquired pneumonia Nasal cannula to maintain saturations greater than equal to 92% Incentive spirometry while awake Albuterol/ipratropium is every 6 hours and every 2 hours. Dyspnea Monitor output from chest tube -595 past 24 hours -20 cmH2O GI: Instead per CT surgery Famotidine for GI prophylaxis Docusate sodium 100 mg 1 tablet twice daily for bowel regimen : BPH [place] catheter has been removed Continue doxazosin 1 mg daily Endo: Hypothyroidism Currently on insulin drip/sliding scale per CT surgery Currently not on levothyroxine Renal: Chronic kidney disease stage III a Creatinine is 1.2 Recheck BMP in a.m. 24 Monitor urine output Accurate I's and O's Heme: History of prostate cancer Normocytic anemia Thrombocytopenia Check CBC in a.m. and on GEM now with bleeding Transfuse per CT surgery program ID: Currently on cefazolin 2 g IV every 8 hours x5 dosages [address] surgery Continue ceftriaxone and azithromycin for community acquired pneumonia MSK: PT evaluate and treat FEN: Replace electrolytes per CT surgery electrolyte protocol Access -Right IJ cordis with dual-lumen catheter day #2 placed in OR -Right radial arterial line day 2 placed in OR Prophylaxis -GI -famotidine -DVT -LIGIA hose right lower extremity. Pharmacological prophylaxis when okay with CT surgery Level 2 follow-up
--- NOTE | 2018-08-15 09:27 | P.PNCV ---
- Note Subjective/Hospital Course: An 87-year-old male, patient of Dr. Iraj Fung and Damion Humphrey, who apparently was transferred from [facility]; history of coronary artery disease, who has was actually seen by Dr. Jang in the office on 2018. He has had a history of coronary disease. He has had prior stenting of the RCA. He has been complaining of symptoms of chest pain and shortness of breath. He had recent re-instent stenosis of the RCA stent for which he underwent PCI and balloon angioplasty. He presented to [facility] with chest pain. He had a catheterization that was done on Friday; however, I do not have that catheterization report, which is pending and also the films. He did have a heart catheterization. His last report was from 05/04/2018 which showed the left main was a medium size without significant disease. LAD had no obstructive disease; the circumflex had no obstructive disease. The RCA had a 90+ percent in-stent restenosis where PCI was completed. He has also had an echocardiogram from 05/07/2018 showing an ejection fraction of 50%-55%, trace mitral and tricuspid insufficiency. 08/11 pt had some substernal chest pain last night, placed on IV heparin gtt and NTG paste now pain free, will wait for PRU in am to decide timing for surgery 08/12 PRU 138 had episode of brief hemoptysis last pm, now resolved pain controlled last night , now on NTG gtt requiring some titration, high risk for intraop bleed with recent Brilinta last dose friday , will tentatively schedule for surgery on monday 08/14 SURGICAL PROCEDURE 1. Urgent Clamp Less Off-pump Coronary Artery Bypass Grafting x 1 with reverse saphenous vein graft to the posterior Descending branch of the right Coronary artery 2. Left leg Endoscopic Vein [place] 3. Intraoperative Vein Mapping. 08/15 Doing well In normal sinus rhythm Transferred to [facility] Maintain chest tube to drainage Objective: Vital Signs - 24 hr 08/14/18 12:00 08/14/18 12:17 08/14/18 12:30 Temperature 96.4 F L 96.4 F L Pulse Rate 78 Respiratory Rate 14 14 Blood Pressure 90/50 L Pulse Oximetry 100 99 08/14/18 15:00 08/14/18 15:01 08/14/18 15:15 Temperature 96.1 F L 96.1 F L Pulse Rate 89 Respiratory Rate 10 L 8 L Blood Pressure 109/54 L Pulse Oximetry 94 L 97 08/14/18 15:50 08/14/18 16:25 08/14/18 17:00 Temperature Pulse Rate 93 H 88 Respiratory Rate 8 L 12 Blood Pressure 92/55 L Pulse Oximetry 97 96 08/14/18 19:00 08/14/18 21:10 08/14/18 21:13 Temperature 97.8 F Pulse Rate 85 88 Respiratory Rate 16 20 16 Blood Pressure 106/55 L Pulse Oximetry 96 08/14/18 22:32 08/14/18 23:00 08/15/18 02:08 Temperature 97.7 F Pulse Rate 98 H Respiratory Rate 16 16 Blood Pressure 115/55 L Pulse Oximetry 95 94 L 08/15/18 02:39 08/15/18 03:00 08/15/18 03:39 Temperature 97.6 F Pulse Rate 89 113 H Respiratory Rate 16 16 22 Blood Pressure 90/50 L Pulse Oximetry 91 L 08/15/18 07:00 Temperature 98.6 F Pulse Rate 93 H Respiratory Rate 20 Blood Pressure 117/44 L Pulse Oximetry 92 L Labs: Laboratory Results - last 12 hr 08/12/18 08/14/18 08/14/18 12:45 21:30 22:13 WBC RBC Hgb Hct MCV MCH MCHC RDW Plt Count MPV APTT Sodium Potassium Chloride Carbon Dioxide Anion Gap BUN Creatinine Estimated GFR POC Glucose 83 90 Random Glucose Calcium Magnesium MTS Gel Crossmatch See Detail 08/15/18 08/15/18 08/15/18 00:40 04:27 04:30 WBC 7.6 RBC 2.99 L Hgb 9.4 L Hct 27.2 L MCV 91.2 MCH 31.5 MCHC 34.6 RDW 14.5 Plt Count 139 L MPV 7.7 APTT Sodium Potassium Chloride Carbon Dioxide Anion Gap BUN Creatinine Estimated GFR POC Glucose 100 99 Random Glucose Calcium Magnesium MTS Gel Crossmatch 08/15/18 08/15/18 08/15/18 04:30 04:30 07:31 WBC RBC Hgb Hct MCV MCH MCHC RDW Plt Count MPV APTT 23.8 Sodium 142 Potassium 4.8 Chloride 111 H Carbon Dioxide 25.4 Anion Gap 6 BUN 18 Creatinine 1.16 Estimated GFR 59 L POC Glucose 92 Random Glucose 95 Calcium 7.6 L Magnesium 2.2 MTS Gel Crossmatch Result Diagrams: 08/15/18 04:30 08/15/18 04:30 - Plan (1) CAD (coronary artery disease), [place] coronary artery Plan: ASA, statin PRU 138/ repeat in am for surgery friday
[2018-08-15] MEDS ORDERED: Bisacodyl 10 MG Supp RECTAL PRN (09:29)
[2018-08-15] MEDS ORDERED: Sod Phosphate/Sod Biphosphate (Adult) Enema 133 ML Bottle RECTAL PRN (09:29)
[2018-08-15] MEDS: ceFAZolin 2 GM Premix Inj 2 GM/50 ML PIGGYBACK IV.SIG SCH ×2 (10:49→16:03)
[2018-08-15] MEDS: Insulin NovoLOG Aspart Correctional Sugar Inj SQ SCH ×4 (10:54→22:24)
[2018-08-15] MEDS: Famotidine 20 MG Tablet PO SCH (10:55)
[2018-08-15] MEDS: Docusate Sodium 100 MG Capsule PO SCH ×2 (10:56→22:23)
[2018-08-15] MEDS: Azithromycin Inj 500 MG in Sodium Chlor 0.9% Inj 250 ML IV.SIG SCH (10:56)
[2018-08-15] MEDS: Furosemide 20 MG Tablet PO SCH (11:02)
[2018-08-15] MEDS: Doxazosin 1 MG Tablet PO SCH (11:02)
--- NOTE | 2018-08-15 18:21 | ECG ---
Date Performed: 08/15/2018 Time Performed: 04:19:48 PTAGE: 87 years EKG: Sinus rhythm LBBB Abnormal ECG Since the PREVIOUS TRACING , no significant change noted DOCTOR: Wilfredo Campbell Interpretating Date/Time 08/15/2018 18:20:27
[2018-08-16] MEDS: ceFAZolin 2 GM Premix Inj 2 GM/50 ML PIGGYBACK IV.SIG SCH (03:00)
[2018-08-16] MEDS: Insulin NovoLOG Aspart Correctional Sugar Inj SQ SCH ×5 (03:01→21:17)
[2018-08-16 05:00] LABS: Baso % (Auto) 0.2 % (0.0-2.0); Eos # (Auto) 0.3 th/mm3 (0.0-0.4); Eos % (Auto) 3.4 % (0.0-4.0); Hematocrit 25.9 % (39.0-51.0); Hemoglobin 8.8 gm/dL (13.0-17.0); Lymph # (Auto) 0.7 th/mm3 (1.0-4.8); Lymph % (Auto) 7.3 % (9.0-44.0); Mean Corpuscular HGB Conc 34.2 % (32.0-36.0); Mean Corpuscular Hemoglobin 31.4 pg (27.0-34.0); Mono % (Auto) 10.3 % (0.0-8.0); Neut # (Auto) 7.6 th/mm3 (1.8-7.7); Neut % (Auto) 78.8 % (16.0-70.0); Platelet Count 125 th/mm3 (150-450); Red Blood Count 2.82 mil/mm3 (4.50-5.90); Red Cell Distribution Width 14.9 % (11.6-17.2); White Blood Count 9.7 th/mm3 (4.0-11.0)
[2018-08-16 05:03] LABS: Calcium 8.2 mg/dL (8.5-10.1); Potassium 4.2 meq/L (3.5-5.1)
[2018-08-16 05:05] LABS: Carbon Dioxide 25.1 meq/L (21.0-32.0); Magnesium 2.2 mg/dL (1.5-2.5)
[2018-08-16] MEDS: Levothyroxine 50 MCG Tablet PO SCH (08:22)
[2018-08-16] MEDS ORDERED: Dextrose 50% in Water 50 ML Vial IV.PUSH PRN (08:48)
--- NOTE | 2018-08-16 10:03 | P.PNCV ---
- Note Subjective/Hospital Course: An 87-year-old male, patient of Dr. Iraj Fung and Damion Humphrey, who apparently was transferred from [facility]; history of coronary artery disease, who has was actually seen by Dr. Jang in the office on 2018. He has had a history of coronary disease. He has had prior stenting of the RCA. He has been complaining of symptoms of chest pain and shortness of breath. He had recent re-instent stenosis of the RCA stent for which he underwent PCI and balloon angioplasty. He presented to [facility] with chest pain. He had a catheterization that was done on Friday; however, I do not have that catheterization report, which is pending and also the films. He did have a heart catheterization. His last report was from 05/04/2018 which showed the left main was a medium size without significant disease. LAD had no obstructive disease; the circumflex had no obstructive disease. The RCA had a 90+ percent in-stent restenosis where PCI was completed. He has also had an echocardiogram from 05/07/2018 showing an ejection fraction of 50%-55%, trace mitral and tricuspid insufficiency. 08/11 pt had some substernal chest pain last night, placed on IV heparin gtt and NTG paste now pain free, will wait for PRU in am to decide timing for surgery 08/12 PRU 138 had episode of brief hemoptysis last pm, now resolved pain controlled last night , now on NTG gtt requiring some titration, high risk for intraop bleed with recent Brilinta last dose friday , will tentatively schedule for surgery on monday 08/14 SURGICAL PROCEDURE 1. Urgent Clamp Less Off-pump Coronary Artery Bypass Grafting x 1 with reverse saphenous vein graft to the posterior Descending branch of the right Coronary artery 2. Left leg Endoscopic Vein [place] 3. Intraoperative Vein Mapping. 08/15 Doing well In normal sinus rhythm Transferred to [facility] Maintain chest tube to drainage 08/16 Doing well Sinus tachycardia. We will increase beta-mary Maintain chest tube to drainage Possible removal tomorrow Discharge planning Objective: Vital Signs - 24 hr 08/15/18 11:00 08/15/18 15:00 08/15/18 17:19 Temperature 98.5 F 98.8 F Pulse Rate 86 81 86 Respiratory Rate 16 20 20 Blood Pressure 112/50 L 121/54 L Pulse Oximetry 92 L 93 L 08/15/18 19:00 08/15/18 20:00 08/15/18 20:42 Temperature 98.6 F Pulse Rate 104 H 76 81 Respiratory Rate 16 16 Blood Pressure 156/75 H Pulse Oximetry 95 98 08/15/18 21:00 08/15/18 22:00 08/15/18 23:00 Temperature 98.6 F Pulse Rate 92 H 130 H 93 H Respiratory Rate 16 Blood Pressure 146/67 H Pulse Oximetry 98 08/16/18 00:00 08/16/18 01:00 08/16/18 02:00 Temperature Pulse Rate 90 92 H 106 H Respiratory Rate Blood Pressure Pulse Oximetry 08/16/18 02:36 08/16/18 06:00 08/16/18 07:00 Temperature 98.5 F Pulse Rate 96 H 103 H Respiratory Rate 16 18 Blood Pressure 141/72 H Pulse Oximetry 96 Labs: Laboratory Results - last 12 hr 08/15/18 08/16/18 08/16/18 22:11 04:00 04:00 WBC 9.7 RBC 2.82 L Hgb 8.8 L Hct 25.9 L MCV 92.0 MCH 31.4 MCHC 34.2 RDW 14.9 Plt Count 125 L MPV 8.0 Neut % (Auto) 78.8 H Lymph % (Auto) 7.3 L [place] % (Auto) 10.3 H Eos % (Auto) 3.4 Baso % (Auto) 0.2 Neut # (Auto) 7.6 Lymph # (Auto) 0.7 L [place] # (Auto) 1.0 H Eos # (Auto) 0.3 Baso # (Auto) 0.0 WBC Differential . Differential Comment Auto diff final APTT Sodium 140 Potassium 4.2 Chloride 109 H Carbon Dioxide 25.1 Anion Gap 6 BUN 17 Creatinine 1.00 Estimated GFR 70 L POC Glucose 86 Random Glucose 93 Calcium 8.2 L Magnesium 2.2 08/16/18 04:00 WBC RBC Hgb Hct MCV MCH MCHC RDW Plt Count MPV Neut % (Auto) Lymph % (Auto) [place] % (Auto) Eos % (Auto) Baso % (Auto) Neut # (Auto) Lymph # (Auto) [place] # (Auto) Eos # (Auto) Baso # (Auto) WBC Differential Differential Comment APTT 33.1 H D Sodium Potassium Chloride Carbon Dioxide Anion Gap BUN Creatinine Estimated GFR POC Glucose Random Glucose Calcium Magnesium Result Diagrams: 08/16/18 04:00 08/16/18 04:00 - Plan (1) CAD (coronary artery disease), [place] coronary artery Plan: ASA, statin PRU 138/ repeat in am for surgery friday
[2018-08-16] MEDS: Polyethylene Glycol 3350 17 GM Packet PO SCH (10:18)
[2018-08-16] MEDS: Carvedilol 6.25 MG Tablet PO SCH ×2 (10:19→21:10)
[2018-08-16] MEDS: Furosemide 20 MG Tablet PO SCH (10:19)
[2018-08-16] MEDS: Famotidine 20 MG Tablet PO SCH (10:20)
[2018-08-16] MEDS: Docusate Sodium 100 MG Capsule PO SCH ×2 (10:20→21:10)
[2018-08-16] MEDS: Multivitamin/Minerals Therapeutic Tablet PO SCH (10:20)
[2018-08-16] MEDS: Doxazosin 1 MG Tablet PO SCH (10:52)
[2018-08-16] MEDS: Azithromycin Inj 500 MG in Sodium Chlor 0.9% Inj 250 ML IV.SIG SCH (12:51)
[2018-08-17] MEDS: Levothyroxine 50 MCG Tablet PO SCH (06:21)
[2018-08-17] MEDS: Multivitamin/Minerals Therapeutic Tablet PO SCH (08:48)
[2018-08-17] MEDS: Insulin NovoLOG Aspart Correctional Sugar Inj SQ SCH ×3 (08:49→23:58)
[2018-08-17] MEDS: Furosemide 20 MG Tablet PO SCH (08:49)
[2018-08-17] MEDS: Famotidine 20 MG Tablet PO SCH (08:49)
[2018-08-17] MEDS: Doxazosin 1 MG Tablet PO SCH (08:49)
[2018-08-17] MEDS: Polyethylene Glycol 3350 17 GM Packet PO SCH (08:49)
[2018-08-17] MEDS: Docusate Sodium 100 MG Capsule PO SCH ×2 (08:49→21:11)
[2018-08-17] MEDS: Carvedilol 6.25 MG Tablet PO SCH ×2 (08:49→21:12)
--- NOTE | 2018-08-17 11:35 | XR ---
EXAM DATE: 08/17/2018 11:33 AM EST AGE/SEX: 87 years / Male INDICATIONS: Respiratory status. CLINICAL DATA: This is the patient's subsequent encounter. Patient reports that signs and symptoms h ave been present for 4 - 6 days and indicates a pain score of 5/10. MEDICAL/SURGICAL HISTORY: . Aneurysm, abdominal. Cardiovascular disease. Chronic kidney diseas e. Coronary artery stent. . COMPARISON: C, CHEST 1V SINGLE AP, 08/15/2018. . FINDINGS: Heart is enlarged. Pulmonary vascular knee shows some mild congestion. Central venous catheter remain s. Mediastinal drain and chest tubes have been removed. There is no pneumothorax. CONCLUSION: Cardiomegaly with mild interstitial edema Mediastinal drains and chest tubes have been removed without pneumothorax. Electronically signed by: Iraj Paulino MD Board Certified Radiologist 08/17/2018 11:34 AM EST
--- NOTE | 2018-08-17 14:16 | P.PNCV ---
- Note Subjective/Hospital Course: An 87-year-old male, patient of Dr. Iraj Fung and Damion Humphrey, who apparently was transferred from [facility]; history of coronary artery disease, who has was actually seen by Dr. Jang in the office on 2018. He has had a history of coronary disease. He has had prior stenting of the RCA. He has been complaining of symptoms of chest pain and shortness of breath. He had recent re-instent stenosis of the RCA stent for which he underwent PCI and balloon angioplasty. He presented to [facility] with chest pain. He had a catheterization that was done on Friday; however, I do not have that catheterization report, which is pending and also the films. He did have a heart catheterization. His last report was from 05/04/2018 which showed the left main was a medium size without significant disease. LAD had no obstructive disease; the circumflex had no obstructive disease. The RCA had a 90+ percent in-stent restenosis where PCI was completed. He has also had an echocardiogram from 05/07/2018 showing an ejection fraction of 50%-55%, trace mitral and tricuspid insufficiency. 08/11 pt had some substernal chest pain last night, placed on IV heparin gtt and NTG paste now pain free, will wait for PRU in am to decide timing for surgery 08/12 PRU 138 had episode of brief hemoptysis last pm, now resolved pain controlled last night , now on NTG gtt requiring some titration, high risk for intraop bleed with recent Brilinta last dose friday , will tentatively schedule for surgery on monday 08/14 SURGICAL PROCEDURE 1. Urgent Clamp Less Off-pump Coronary Artery Bypass Grafting x 1 with reverse saphenous vein graft to the posterior Descending branch of the right Coronary artery 2. Left leg Endoscopic Vein [place] 3. Intraoperative Vein Mapping. 08/15 Doing well In normal sinus rhythm Transferred to [facility] Maintain chest tube to drainage 08/16 Doing well Sinus tachycardia. We will increase beta-mary Maintain chest tube to drainage Possible removal tomorrow Discharge planning 08/17 chest tube removed without difficulty did some some mild interstitial edema/ gentle diuresis pulm toileting rhythm stable eval for dc in am al edema / gentle diuresis Objective: Vital Signs - 24 hr 08/16/18 15:00 08/16/18 18:01 08/16/18 19:00 Temperature 98.2 F 99.6 F Pulse Rate 87 102 H 96 H Respiratory Rate 18 18 18 Blood Pressure 138/90 126/59 L Pulse Oximetry 99 97 08/16/18 19:55 08/16/18 20:00 08/16/18 23:00 Temperature 99.4 F Pulse Rate 74 96 H Respiratory Rate 16 18 Blood Pressure 144/83 H Pulse Oximetry 98 97 96 08/17/18 02:41 08/17/18 03:00 08/17/18 04:12 Temperature 99.0 F Pulse Rate 68 82 Respiratory Rate 17 18 18 Blood Pressure 121/56 L Pulse Oximetry 96 08/17/18 07:00 08/17/18 09:02 08/17/18 09:03 Temperature 98.1 F Pulse Rate 90 88 88 Respiratory Rate 16 16 16 Blood Pressure 137/62 Pulse Oximetry 92 L 96 96 08/17/18 11:00 Temperature 98.0 F Pulse Rate 78 Respiratory Rate 16 Blood Pressure 113/57 L Pulse Oximetry 98 GENERAL: A&O x 3 SKIN: Warm and dry. prevena dressing to chest , ecchymosis left inner thigh, left leg incision intact and well approximated HEAD: Normocephalic. EYES: No scleral icterus. No injection or drainage. NECK: Supple, trachea midline. No JVD or lymphadenopathy. CARDIOVASCULAR: Regular rate and rhythm without murmurs, gallops, or rubs. RESPIRATORY: Breath sounds equal bilaterally. No accessory muscle use. few basilar crackles GASTROINTESTINAL: Abdomen soft, non-tender, nondistended. MUSCULOSKELETAL: No cyanosis, or edema. BACK: Nontender without obvious deformity. No CVA tenderness. Labs: Laboratory Results - last 12 hr 08/17/18 08/17/18 06:10 08:46 POC Glucose 108 99 Result Diagrams: 08/16/18 04:00 08/16/18 04:00 - Plan (1) CAD (coronary artery disease), [place] coronary artery Plan: ASA, statin PRU 138/ repeat in am for surgery friday (5) S/P CABG x 1 Plan: resp : nebs, ezpap [place] chest tube removed cv: BB ASA, statin , plavix gentle diuresis check labs in am Heme : s/p plts , RBC start iron supplement GI: PPI, motility meds PT/ OOB
--- NOTE | 2018-08-17 14:23 | P.DCO ---
- Diagnosis (1) CAD (coronary artery disease), [place] coronary artery Status: Acute (2) Hypertension Status: Chronic (3) BPH (benign prostatic hyperplasia) Status: Chronic (4) Hypertension Status: Chronic (5) S/P CABG x 1 Status: Acute - Home Health Nursing Order: Medical education, Signs/symptoms of disease process, Wound care and dressing changes, Nursing assessment with vital signs Instructions: PREVENA Single Use Negative Wound Therapy System Caregiver Instruction Sheet 1. A Prevena dressing system was applied to the chest incision during surgery , to promote wound healing. It works via a suction device (negative pressure wound therapy) to remove low to moderate levels of exudate (drainage) and infectious materials. We recommend that the device stay in place for up to seven days, from day of surgery. 2. Day of Surgery___/ Day of Removal ___/07/11 3. The dressing should only be removed by a health career services assistant. Please arrange removal of device to coincide with Home Health visit and or with Nursing staff at Rehab 4. If skin reddening or irritation of skin occurs, or excessive drainage, please notify the Cardiovascular Surgeons office at [phone]. 5. Light showering is permissible; however the pump should be disconnected and placed in safe location, where it will not get wet. The dressing should not be exposed to direct spray or submerged in water. No bath tub / shower only. Ensure the end of the tubing attached to the dressing is facing down so that water does not enter the top of the tube. 6. To remove Prevena dressing: press purple button to turn off device / remove the suction. Then disconnect the tubing from the pump. The fixation strips should be stretched away from the skin and the dressing lifted at one corner and peeled back until it has been fully removed. After removal, it is ok to shower daily using liquid dial soap and clean wash cloth, rinse and pat dry, and leave incision open to air dry. For any concerns regarding Prevena dressing, and or wounds, please contact Kaci Saldana, patient navigator at [phone] or notify the Cardiovascular Surgeon Heart and Vascular Surgery patients *Special attention to sternal dressing Mandatory frequency Assess and evaluation, 4 days in a row The next week 3X week 2 times a week for 4 weeks 1 time a week for 5 weeks Schedule Heart and Vascular patients for full 60 day certification period Initial visit Review Open Heart Surgery Discharge Instructions (Sternal precautions, Activity, Elastic hose, Incision care, Driving, Incentive spirometry, Smoking, Weeping Water, Work and other) Need Betadine to paint incision Medication reconciliation Importance of follow up care/ check on appointments Make calendar record temperature daily When to call [facility] nurse, review instructions, phone list Incentive Spirometry, demonstration Visit 1- Begin discharge instruction for patient family and/ or caregiver using teach back method- Signs and symptoms of infection Disease characteristics Medicines and side effects Foods and nutrition/ appetite Infection control/ hand washing/ hygiene Visit 2- Continue teaching Discharge instructions- include additional information on smoking cessation , sternal dressing (sternal vac) Visit 3- Continue teaching- Cough and deep breathing, incision monitoring. Choose my plate Visit 4- Continue teaching- Discuss limitations Discuss how they are feeling Discuss progress toward goals Remaining visits- continue teaching and monitoring For any questions please call : Friday 8am-5pm Heart & Vascular Surgery Office ( Dr. Jang & Dr. Vasquez), After Hours / Nights (5pm -8am) Weekends and Holidays Please call [facility] Cardiac Intermediate Care Unit (CIC) Charge Nurse Incentive spirometry Q1 hr x 10, while awake, also use acapella device hourly whole awake Sternal Breast Bone Precautions: NO pushing or pulling, ( pt must use sternal pillow to support chest with all activities and with coughing ( takes up to 3 months breast bone to heal ) Daily incision care: ok to shower daily, no tub bath. Wash all incisions with liquid dial soap, clean wash cloth to each site, rinse and pat dry. Observe for any signs of infection, such as drainage which is dark yellow, jacobs, green or foul smelling. Immediately report to the surgeon any drainage from the chest incision, or legs, and for any abnormal drainage from the chest tube sites. Notify surgeon if any temp >101.5 degrees F. When specialty dressing removed/ or if you do not have one, continue to shower daily as above, then rinse and pat incision dry and paint with betadine daily x 5 days. Allow steri strips to fall off if you have any. Avoid lotions, creams, salves, oils, etc. for the first month Please see attached forms for additional instructions regarding post Open Heart specialty wound vacuum dressings. HERMAN or Prevena , Dressing to be removed by Nursing staff on ___08/21/18____ For Dr. Vasquez patients , please obtain CBC, BMP, PA & Lat CXR in 2 weeks, results to Dr. Vasquez ( prescription will be given) ( ) (Tele: [phone]) , F/U appointment: as per DC instructions: PCP in 2 weeks, CV surgeon 2 weeks, Dentist/Owner 3-4 weeks For any questions regarding incisions/ dressing / meds / post op care or above Symptoms, Friday 8am-5pm Heart & Vascular Surgery Office ( Dr. Jang & Dr. Vasquez), After Hours / Nights (5pm -8am) Weekends and Holidays Please call [facility] Cardiac Intermediate Care Unit (CIC) Charge Nurse - Case Management Consult Case Management Consult-Home Health: Yes - Certification I have seen patient Jose Antonio Serna on 08/17/18. My clinical findings support the need for the requested home health care services because: Deconditioned with increased weakness I certify that my clinical findings support that this patient is homebound because: Post-op weakness
[2018-08-17] MEDS ORDERED: Ferrous Sulfate 325 MG Tablet PO SCH (17:00)
[2018-08-18 04:56] LABS: Hematocrit 25.4 % (39.0-51.0); Hemoglobin 8.7 gm/dL (13.0-17.0); Mean Corpuscular HGB Conc 34.2 % (32.0-36.0); Mean Corpuscular Hemoglobin 31.3 pg (27.0-34.0); Mean Corpuscular Volume 91.4 fL (80.0-100.0); Mean Platelet Volume 7.6 fL (7.0-11.0); Platelet Count 181 th/mm3 (150-450); Red Blood Count 2.78 mil/mm3 (4.50-5.90); Red Cell Distribution Width 14.5 % (11.6-17.2); White Blood Count 7.4 th/mm3 (4.0-11.0)
[2018-08-18 05:10] LABS: Calcium 7.9 mg/dL (8.5-10.1); Carbon Dioxide 31.3 meq/L (21.0-32.0); Magnesium 2.3 mg/dL (1.5-2.5); Potassium 4.1 meq/L (3.5-5.1)
[2018-08-18] MEDS: Carvedilol 6.25 MG Tablet PO SCH (08:29)
[2018-08-18] MEDS: Doxazosin 1 MG Tablet PO SCH (08:29)
[2018-08-18] MEDS: Famotidine 20 MG Tablet PO SCH (08:29)
[2018-08-18] MEDS: Furosemide 20 MG Tablet PO SCH (08:30)
[2018-08-18] MEDS: Insulin NovoLOG Aspart Correctional Sugar Inj SQ SCH (08:30)
[2018-08-18] MEDS: Docusate Sodium 100 MG Capsule PO SCH ×2 (08:30→08:36)
[2018-08-18] MEDS: Multivitamin/Minerals Therapeutic Tablet PO SCH (08:32)
[2018-08-18] MEDS: Polyethylene Glycol 3350 17 GM Packet PO SCH ×2 (08:32→08:37)
[2018-08-18] MEDS ORDERED: Furosemide 40 MG Tablet PO ONE (09:29)
--- NOTE | 2018-08-18 10:10 | P.DS ---
Date of admission: 08/09/18 23:39 Primary care physician: UNKNOWN Attending physician on discharge: Cheyenne Jang Anticipated date of discharge: 08/18/18 Brief History from admission: 87-year-old male with a history of hypertension, AAA, CAD, hyperlipidemia, hypothyroidism, BPH and CKD stage III was a transfer from [facility] in [place] for evaluation by cardiothoracic surgery. He states for the last 3 days he has been having intermittent chest pain and today it became more prominent and was not relieved by nitro. He states the pain was a sharp stabbing constant 7/10 in the center of his chest with no radiation or associated symptoms. He states he presented to the ER and they took him straight for a cardiac cath in which they told him he was to block to be able to be stented. Patient is the stepfather to Dr. Mcintyre. And he states he consulted with her and it was decided that he wanted to be evaluated by Dr. Jang. Upon evaluation he is laying in bed, denies any chest pain or shortness of breath. While at [facility] he was diagnosed with pneumonia, but he does deny any cough, fevers or chills. Patient update on day of discharge: pt doing well , remains in NSR will continue low dose diuretic on ASA, BB , Statin has 02 at home that he uses prn 02 sat 94% on 2 liters DS: Diagnosis - Discharge Diagnosis (1) CAD (coronary artery disease), [place] coronary artery Status: Acute (2) Hypertension Status: Chronic (3) BPH (benign prostatic hyperplasia) Status: Chronic (4) Hypertension Status: Chronic (5) S/P CABG x 1 Status: Acute DS: Medications - Discharge Medications Prescriptions: aspirin [Adult Low Dose Aspirin] 81 mg PO DAILY #30 tab atorvastatin 40 mg PO HS #30 tab carvedilol [Coreg] 6.25 mg PO BID #60 tab clopidogrel [Plavix] 75 mg PO DAILY #30 tab docusate sodium [DOK] 100 mg PO BID #30 cap ferrous sulfate [FeroSul] 325 mg PO BID@1200,1700 #60 tab furosemide 20 mg PO DAILY #14 tab hydrocodone-acetaminophen [[place]] 1 tab PO Q4H PRN #30 tab PRN Reason: Acute Pain levothyroxine [Synthroid] 50 mcg PO DAILY@0600 #30 tab potassium chloride [Klor-Con Sprinkle] 8 meq PO DAILY #14 cap DS: Summary Hospital Course: An 87-year-old male, patient of Dr. Iraj Fung and Damion Humphrey, who apparently was transferred from [facility]; history of coronary artery disease, who has was actually seen by Dr. Jang in the office on 2018. He has had a history of coronary disease. He has had prior stenting of the RCA. He has been complaining of symptoms of chest pain and shortness of breath. He had recent re-instent stenosis of the RCA stent for which he underwent PCI and balloon angioplasty. He presented to [facility] with chest pain. He had a catheterization that was done on Friday; however, I do not have that catheterization report, which is pending and also the films. He did have a heart catheterization. His last report was from 05/04/2018 which showed the left main was a medium size without significant disease. LAD had no obstructive disease; the circumflex had no obstructive disease. The RCA had a 90+ percent in-stent restenosis where PCI was completed. He has also had an echocardiogram from 05/07/2018 showing an ejection fraction of 50%-55%, trace mitral and tricuspid insufficiency. 08/11 pt had some substernal chest pain last night, placed on IV heparin gtt and NTG paste now pain free, will wait for PRU in am to decide timing for surgery 08/12 PRU 138 had episode of brief hemoptysis last pm, now resolved pain controlled last night , now on NTG gtt requiring some titration, high risk for intraop bleed with recent Brilinta last dose friday , will tentatively schedule for surgery on monday 08/14 SURGICAL PROCEDURE 1. Urgent Clamp Less Off-pump Coronary Artery Bypass Grafting x 1 with reverse saphenous vein graft to the posterior Descending branch of the right Coronary artery 2. Left leg Endoscopic Vein [place] 3. Intraoperative Vein Mapping. 08/15 Doing well In normal sinus rhythm Transferred to [facility] Maintain chest tube to drainage 08/16 Doing well Sinus tachycardia. We will increase beta-mary Maintain chest tube to drainage Possible removal tomorrow Discharge planning 08/17 chest tube removed without difficulty did some some mild interstitial edema/ gentle diuresis pulm toileting rhythm stable eval for dc in am edema / gentle diuresis 08/18 pt stable for dc home has home 02 - Time Spent with Patient Total time spent providing and/or coordinating discharge services: Greater than 30 minutes Exam Vital signs: Vital Signs 08/17/18 11:00 08/17/18 15:00 08/17/18 15:47 Temperature 98.0 F 98.3 F Pulse Rate 78 92 H 77 Respiratory Rate 16 18 14 Blood Pressure 113/57 L 114/55 L Pulse Oximetry 98 99 08/17/18 19:00 08/17/18 20:00 08/17/18 21:55 Temperature 97.7 F Pulse Rate 102 H 96 H Respiratory Rate 18 18 Blood Pressure 128/60 Pulse Oximetry 97 97 97 08/17/18 23:00 08/18/18 03:00 08/18/18 04:38 Temperature 97.9 F 98.2 F Pulse Rate 92 H 76 84 Respiratory Rate 18 18 15 Blood Pressure 126/63 125/58 L Pulse Oximetry 97 96 08/18/18 07:00 08/18/18 08:00 Temperature 97.8 F Pulse Rate 84 Respiratory Rate 18 Blood Pressure 118/56 L Pulse Oximetry 96 96 Intake & Output 08/17/18 08/18/18 08/18/18 18:59 06:59 18:59 Intake Total 1040 / 1040 240 / 240 Output Total 350 / 350 850 / 850 Balance 690 / 690 -610 / -610 Intake: IV 100 / 100 Rocephin Inj 1,000 MG In NS Inj 100 / 100 100 ML @ 200 mls/hr IV.SIG Q24H SALMA Rx#:[id number] Oral 940 / 940 240 / 240 Output: Urine 350 / 350 850 / 850 Other: # Voids 2 - Constitutional no acute distress - Routine HEENT Exam Head: Present: normocephalic, atraumatic Eye: Present: EOMI, PERRL, normal accommodation - Routine Chest/Breast/Axilla Exam Chest wall: Present: tenderness - Routine Respiratory Exam Comments: diminished in bases, few basilar crackles - Routine Cardiovascular Exam Present: RRR, S1, S2 - Routine Abdominal Exam Present: soft, normoactive bowel sounds - Routine Extremities Exam Present: full ROM, pulses intact - Routine Skin Exam Present: intact, wounds Comments: prevena dressing to chest, ecchymosis left inner thigh - Routine Neurological Exam Present: alert, oriented X3, CN II-XII intact Results Procedures completed during hospitalization: Date of procedure: 08/14/18 Anesthesia: GETA Surgeon: Cheyenne Jang MD Operation and Findings: PREPROCEDURE DIAGNOSES 1. Severe Single Vessel Coronary Artery Disease involving the RCA. 2. Critical In-Stent Restenosis 3. Moderate Left Ventricular Dysfunction 4. Acute Myocardial Infarction (NSTEMI) 5. Heavily Calcified Ascending Aorta POSTPROCEDURE DIAGNOSES Same SURGICAL PROCEDURE 1. Urgent Clamp Less Off-pump Coronary Artery Bypass Grafting x 1 with reverse saphenous vein graft to the posterior Descending branch of the right Coronary artery 2. Left leg Endoscopic Vein [place] 3. Intraoperative Vein Mapping. Labs on day of discharge: Labs from last 24 hours 08/18/18 08/18/18 08/17/18 04:20 04:20 17:02 WBC 7.4 RBC 2.78 L Hgb 8.7 L Hct 25.4 L MCV 91.4 MCH 31.3 MCHC 34.2 RDW 14.5 Plt Count 181 D MPV 7.6 Sodium 142 Potassium 4.1 Chloride 106 Carbon Dioxide 31.3 Anion Gap 5 BUN 21 H Creatinine 1.11 Estimated GFR 62 L POC Glucose 104 Random Glucose 87 Calcium 7.9 L Magnesium 2.3 - Impressions ITS Impressions Carotid Doppler Study 08/10/18 12:22 CONCLUSION: 1. Right Internal Carotid Artery: Moderate severity atherosclerotic plaque at the bifurcation without hemodynamically significant narrowing. 2. Left Internal Carotid Artery: Moderate severity atherosclerotic plaque at the bifurcation without hemodynamically significant narrowing. Lower Extremity Ultrasound 08/10/18 12:22 CONCLUSION: 1. Venous mapping as above Venous Doppler Study 08/10/18 12:22 CONCLUSION: No venous thrombosis of either lower extremity. Chest CT 08/13/18 00:16 CONCLUSION: 1. Extensive atherosclerosis as noted above. 2. Interstitial fibrosis as noted above. Chest X-Ray 08/17/18 10:27 CONCLUSION: Cardiomegaly with mild interstitial edema Mediastinal drains and chest tubes have been removed without pneumothorax. Discharge Plan - Discharge Disposition Patient Disposition: W/Home Health Service - Discharge Condition Condition: Good - Discharge Order Discharge Orders: Discharge Order (Routine); Ordered 08/18/18 Ordered By: Damaris Salinas - Physicians Team Primary Care Provider: UNKNOWN, Attending Provider: Cheyenne Jang Other Providers: [facility] ; Cheyenne Jang MD ; Nicholas Phillip MD - Rxs /Orders / Referrals /Forms Prescriptions: New aspirin [Adult Low Dose Aspirin] 81 mg Tablet,Delayed Release (Dr/Ec) 81 mg PO DAILY Qty: 30 RF: 2 atorvastatin 40 mg Tablet 40 mg PO HS Qty: 30 RF: 2 carvedilol [Coreg] 6.25 mg Tablet 6.25 mg PO BID Qty: 60 RF: 2 clopidogrel [Plavix] 75 mg Tablet 75 mg PO DAILY Qty: 30 RF: 2 docusate sodium [DOK] 100 mg Capsule 100 mg PO BID Qty: 30 RF: 0 ferrous sulfate [FeroSul] 325 mg (65 mg iron) Tablet 325 mg PO BID@1200,1700 Qty: 60 RF: 0 furosemide 20 mg Tablet 20 mg PO DAILY Qty: 14 RF: 1 hydrocodone-acetaminophen [[place]] 5-325 mg Tablet 1 tab PO Q4H PRN (Reason: Acute Pain) Qty: 30 RF: 0 levothyroxine [Synthroid] 50 mcg Tablet 50 mcg PO DAILY@0600 Qty: 30 RF: 2 potassium chloride [Klor-Con Sprinkle] 8 mEq Capsule, Extended Release 8 meq PO DAILY Qty: 14 RF: 1 Discontinued azithromycin 500 mg Recon Soln 500 mg IV Q24H ceftriaxone 1 gram Recon Soln 1 g IV DAILY docusate sodium 100 mg Tablet 100 mg PO BID famotidine 20 mg Tablet 20 mg PO DAILY morphine 2 mg/mL Syringe 2 mg IV Q4HR PRN (Reason: Pain, Mild) oxycodone-acetaminophen 5-325 mg Tablet 1 tab PO Q4-6H PRN (Reason: Constipation) sennosides-docusate sodium [Senna with Docusate Sodium] 8.6-50 mg Tablet 2 tab PO HS PRN (Reason: Constipation) Referrals: Farooq Bruno DR [Other] - See Instructions ( Your appointment has been scheduled for [09/14/18] at [1:45 PM] If you cannot make this appointment, please call the office to reschedule ) Damaris Salinas [ADVANCE RN PRACTITIONER] - See Instructions ( Your appointment has been scheduled for [09/01/18] at [10:45 AM] If you cannot make this appointment, please call the office to reschedule ) [facility] [Agency] - See Instructions Pepe Fung MD [FAMILY MEDICINE] - See Instructions ( Your appointment has been scheduled for [08/21/18] at [11:00 am] If you cannot make this appointment, please call the office to reschedule ) - Discharge Instructions Patient Printed Instructions: CABG (Coronary Artery Bypass Graft) (DC) Additional Instructions: HOME HEALTH CARE HAS BEEN ARRANGED WITH [facility], CONTACT# [phone] Incentive spirometry Q1 hr x 10, while awake, also use acapella device hourly whole awake Sternal Breast Bone Precautions: NO pushing or pulling, ( pt must use sternal pillow to support chest with all activities and with coughing ( takes up to 3 months breast bone to heal ) Daily incision care: ok to shower daily, no tub bath. Wash all incisions with liquid dial soap, clean wash cloth to each site, rinse and pat dry. Observe for any signs of infection, such as drainage which is dark yellow, jacobs, green or foul smelling. Immediately report to the surgeon any drainage from the chest incision, or legs, and for any abnormal drainage from the chest tube sites. Notify surgeon if any temp >101.5 degrees F. When specialty dressing removed/ or if you do not have one, continue to shower daily as above, then rinse and pat incision dry and paint with betadine daily x 5 days. Allow steri strips to fall off if you have any. Avoid lotions, creams, salves, oils, etc. for the first month Please see attached forms for additional instructions regarding post Open Heart specialty wound vacuum dressings. HERMAN or Prevena , Dressing to be removed by Nursing staff on F/U appointment: as per DC instructions: PCP in 2 weeks, CV surgeon 2 weeks, Ranch Hand Supervisor 3-4 weeks For any questions regarding incisions/ dressing / meds / post op care or above Symptoms, Friday 8am-5pm Heart & Vascular Surgery Office ( Dr. Jang & Dr. Vasquez), After Hours / Nights (5pm -8am) Weekends and Holidays Please call [facility] Cardiac Intermediate Care Unit (CIC) Charge Nurse PREVENA Single Use Negative Wound Therapy System Caregiver Instruction Sheet 1. A Prevena dressing system was applied to the chest incision during surgery , to promote wound healing. It works via a suction device (negative pressure wound therapy) to remove low to moderate levels of exudate (drainage) and infectious materials. We recommend that the device stay in place for up to seven days, from day of surgery. 2. Day of Surgery___2/ Day of Removal ___/07/11 3. The dressing should only be removed by a health physician primary care sports medicine. Please arrange removal of device to coincide with Home Health visit and or with Nursing staff at Rehab 4. If skin reddening or irritation of skin occurs, or excessive drainage, please notify the Cardiovascular Surgeons office at [phone]. 5. Light showering is permissible; however the pump should be disconnected and placed in safe location, where it will not get wet. The dressing should not be exposed to direct spray or submerged in water. No bath tub / shower only. Ensure the end of the tubing attached to the dressing is facing down so that water does not enter the top of the tube. 6. To remove Prevena dressing: press purple button to turn off device / remove the suction. Then disconnect the tubing from the pump. The fixation strips should be stretched away from the skin and the dressing lifted at one corner and peeled back until it has been fully removed. 7. After removal, it is ok to shower daily using liquid dial soap and clean wash cloth, rinse and pat dry, and leave incision open to air dry. For any concerns regarding Prevena dressing, and or wounds, please contact Kaci Saldana, patient navigator at [phone] or notify the Cardiovascular Surgeons office at [phone].
== END 2018-08-18 16:06 | disposition home health service (06) | DRG 235 ==
LOC: HCVI 23:39 → HCPC 08-10 11:07 → HCVI 08-13 19:56 → HCPC 08-15 19:49
PROVIDERS: ADMIT Thoracic Surgery (Cardiothoracic Vascular Surgery); ATTEND Thoracic Surgery (Cardiothoracic Vascular Surgery)
DX: Z88.2 Allergy status to sulfonamides; I21.4 Non-ST elevation (NSTEMI) myocardial infarction; I08.1 Rheumatic disorders of both mitral and tricuspid valves; Y83.1 Surgical operation with implant of artificial internal device as the cause of abnormal reaction of the patient, or of later complication, without mention of misadventure at the time of the procedure; I25.119 Atherosclerotic heart disease of native coronary artery with unspecified angina pectoris; G47.33 Obstructive sleep apnea (adult) (pediatric); Z88.8 Allergy status to other drugs, medicaments and biological substances; I46.9 Cardiac arrest, cause unspecified; I70.0 Atherosclerosis of aorta; Z85.46 Personal history of malignant neoplasm of prostate; Z88.0 Allergy status to penicillin; Z79.82 Long term (current) use of aspirin; Z79.899 Other long term (current) drug therapy; R04.2 Hemoptysis; Z87.891 Personal history of nicotine dependence; Z91.030 Bee allergy status; E78.5 Hyperlipidemia, unspecified; Z90.49 Acquired absence of other specified parts of digestive tract; R00.0 Tachycardia, unspecified; I71.4 Abdominal aortic aneurysm, without rupture; T82.855A Stenosis of coronary artery stent, initial encounter; N40.0 Benign prostatic hyperplasia without lower urinary tract symptoms; I44.7 Left bundle-branch block, unspecified; I12.9 Hypertensive chronic kidney disease with stage 1 through stage 4 chronic kidney disease, or unspecified chronic kidney disease; D64.9 Anemia, unspecified; E03.9 Hypothyroidism, unspecified; J06.9 Acute upper respiratory infection, unspecified; D69.6 Thrombocytopenia, unspecified; J18.9 Pneumonia, unspecified organism; N18.3 Chronic kidney disease, stage 3 (moderate)
CPT/HCPCS: 36430; 71010; 71045; 71250; 76937; 80048; 80053; 81001; 82948; 82962; 83036; 83735; 85025; 85027; 85576; 85610; 85730; 86850; 86900; 86901; 86923; 87641; 93005; 93306; 93312; 93318; 93880; 93965; 93970; 93998; 94002; 94003; 94010; 94150; 94640; 94650; 94651; 94656; 94657; 94664; 94665; 94667; 97110; 97116; 97162; 97530; C1768; C9248; J0131; J0171; J0330; J0456; J0461; J0690; J0696; J1644; J1815; J1817; J1940; J2250; J2270; J2370; J2704; J2720; J3010; J3370; J3475; J7050; J7060; J7120; P9016; P9031; P9045